=== PATIENT | male | born 1955 | race Caucasian/White ===

== ENCOUNTER → 2017-05-15 08:08 | Outpatient (CLI) | payer BC, SELFPAY ==
[2017-05-15 13:20] LABS: Basophils % 0.9 % (0.1-2.0); Eosinophils # 0.3 K/mm3 (0.0-0.4); Eosinophils % 7.5 % (0.1-12.0); Hematocrit 49.5 % (42.0-52.0); Hemoglobin 17.1 g/dL (14.1-18.0); Lymphocytes # 1.5 K/mm3 (0.7-4.5); Mean Corpuscular HGB Conc 34.6 g/dL (31.8-35.4); Mean Corpuscular Hemoglobin 31.7 pg (27.0-31.2); Mean Corpuscular Volume 91.6 fl (80-94); Mean Platelet Volume 8.2 fl (7.4-10.4); Monocytes # 0.3 K/mm3 (0.1-1.0); Monocytes % 6.3 % (1.7-9.3); Neutrophils # 2.1 K/mm3 (1.8-7.8); Neutrophils % 49.3 % (37.0-80.0); Platelet Count 254 K/mm3 (142-424); Red Cell Distribution Width 13.3 % (11.5-17.5); White Blood Count 4.3 K/mm3 (4.8-10.8)
[2017-05-15 13:50] LABS: Alanine Aminotransferase 37 U/L (12-78); Albumin Level 3.8 gm/dL (3.4-5.0); Albumin/Globulin Ratio 1.4 (1.1-1.8); Alkaline Phosphatase 69 U/L (46-116); Anion Gap 13.3 mEq/L (5-15); Aspartate Amino Transferase 27 U/L (15-37); Bilirubin,Total 0.8 mg/dL (0.2-1.0); Blood Urea Nitrogen 9 mg/dL (7-18); Calcium 9.5 mg/dL (8.5-10.1); Carbon Dioxide 25 mmol/L (21.0-32.0); Chloride 99 mmol/L (98-107); Chol/HDL Ratio 2.2 (1-3.5); Cholesterol 198 mg/dL (140-200); Creatinine,Serum 0.76 mg/dL (0.70-1.30); Estimated Glomerular Filt Rate 104 ml/min (>60); GFR (African American) 126 ML/MIN (>60); Globulin 2.8 gm/dl (1.3-3.2); Glucose 100 mg/dL (74-106); HDL Cholesterol 89 mg/dL (27-67); LDL Cholesterol 96 mg/dL (0-130); Potassium 4.3 mmoL/L (3.5-5.1); Prostate Specific Ag Screen 0.9 ng/mL (0.0-4.0); Sodium 133 mmol/L (136-145); Total Protein,Serum 6.6 gm/dL (6.4-8.2); Triglycerides 64 mg/dL (30-200); VLDL Cholesterol 13 mg/dL (0-40)
== END ==
PROVIDERS: PCP Internal Medicine Adolescent Medicine; Visit Provider Internal Medicine Adolescent Medicine
DX: Z00.00 Encounter for general adult medical examination without abnormal findings (principal); E78.5 Hyperlipidemia, unspecified; J45.21 Mild intermittent asthma with (acute) exacerbation
CPT/HCPCS: 36415; 80053; 80061; 85025; G0103

== ENCOUNTER → 2018-06-25 09:29 | Outpatient (CLI) | payer BC, SELFPAY ==
[2018-06-25 09:56] LABS: Eosinophils # 0.2 K/mm3 (0.0-0.4); Neutrophils # 1.5 K/mm3 (1.8-7.8); Red Cell Distribution Width 13.5 % (11.5-17.5)
[2018-06-25 10:11] LABS: Basophils % 0.9 % (0.1-2.0); Eosinophils % 6.2 % (0.1-12.0); Hematocrit 52.2 % (42.0-52.0); Lymphocytes # 1.4 K/mm3 (0.7-4.5); Lymphocytes % 40.7 % (10-50); Mean Corpuscular HGB Conc 35.9 g/dL (31.8-35.4); Mean Corpuscular Hemoglobin 32.3 pg (27.0-31.2); Monocytes # 0.3 K/mm3 (0.1-1.0); Monocytes % 8.6 % (1.7-9.3); Neutrophils % 43.6 % (37.0-80.0); Platelet Count 256 K/mm3 (142-424); Red Blood Count 5.81 M/mm3 (4.60-6.20); White Blood Count 3.4 K/mm3 (4.8-10.8)
[2018-06-25 10:16] LABS: Hemoglobin 18.8 g/dL (14.1-18.0)
[2018-06-25 11:22] LABS: Alanine Aminotransferase 33 U/L (12-78); Albumin Level 3.9 gm/dL (3.4-5.0); Albumin/Globulin Ratio 1.3 (1.1-1.8); Alkaline Phosphatase 77 U/L (46-116); Aspartate Amino Transferase 26 U/L (15-37); Bilirubin,Total 0.9 mg/dL (0.2-1.0); Blood Urea Nitrogen 6 mg/dL (7-18); Calcium 9.4 mg/dL (8.5-10.1); Carbon Dioxide 27 mmol/L (21.0-32.0); Chloride 100 mmol/L (98-107); Cholesterol 188 mg/dL (140-200); Creatinine,Serum 0.84 mg/dL (0.70-1.30); Estimated Glomerular Filt Rate 92 ml/min (>60); Free Thyroxine Index 2.1 ug/dL (5.93-13.13); GFR (African American) 112 ML/MIN (>60); Globulin 3.1 gm/dl (1.3-3.2); Glucose 92 mg/dL (74-106); HDL Cholesterol 92 mg/dL (27-67); LDL Cholesterol 86 mg/dL (0-130); Sodium 136 mmol/L (136-145); T4 (Thyroxine) 6.6 ug/dl (4.7-13.3); Thyroid Stimulating Hormone 0.81 uIU/ml (0.358-3.740); Triglycerides 50 mg/dL (30-200); Triiodothryronine (T3) Uptake 32 % (31-39); VLDL Cholesterol 10 mg/dL (0-40)
== END ==
PROVIDERS: Visit Provider Internal Medicine Adolescent Medicine
DX: J45.21 Mild intermittent asthma with (acute) exacerbation (principal); E78.5 Hyperlipidemia, unspecified; R63.4 Abnormal weight loss
CPT/HCPCS: 36415; 80053; 80061; 84436; 84443; 84479; 85025

== ENCOUNTER → 2020-05-19 09:38 | Outpatient (CLI) | payer MEDICARE, SELFPAY ==
[2020-05-19 10:35] LABS: Chloride 98 mmol/L (98-107); Potassium 3.9 mmoL/L (3.5-5.1); Sodium 133 mmol/L (136-145)
[2020-05-19 10:38] LABS: Alanine Aminotransferase 36 U/L (12-78); Albumin Level 4.4 g/dl (3.5-5.0); Albumin/Globulin Ratio 1.9 (1.1-1.8); Alkaline Phosphatase 68 U/L (38-126); Anion Gap 11.9 mEq/L (5-15); Aspartate Amino Transferase 63 U/L (17-59); Bilirubin,Total 1.2 mg/dl (0.2-1.3); Blood Urea Nitrogen 4 mg/dl (9-20); Carbon Dioxide 27 mmol/L (22.0-30.0); Cholesterol 208 mg/dl (140-200); Estimated Glomerular Filt Rate 113 ml/min (>60); GFR (African American) 137 ML/MIN (>60); Globulin 2.3 g/dL (1.3-3.2); Total Protein,Serum 6.7 g/dl (6.3-8.2); Triglycerides 47 mg/dl (30-150); VLDL Cholesterol 9 mg/dL (0-40)
[2020-05-19 10:39] LABS: Calcium 9.9 mg/dl (8.4-10.2); Glucose 99 mg/dl (74-100)
[2020-05-19 10:40] LABS: HDL Cholesterol > 110 mg/dl (40-60)
[2020-05-19 10:49] LABS: Direct LDL Cholesterol 49.09 mg/dL (100-129)
== END ==
PROVIDERS: Visit Provider Nurse Practitioner Family
DX: I10 Essential (primary) hypertension (principal); E78.5 Hyperlipidemia, unspecified
CPT/HCPCS: 36415; 80053; 80061

== ENCOUNTER → 2020-11-29 07:14 | Outpatient (CLI) | payer MEDICARE, SELFPAY ==
--- NOTE | 2020-11-29 07:17 | CT_ITS ---
PROCEDURE: CT LUNG SCREENING CLINICAL INDICATION: NICOTINE DEPENDENCE COMPARISON: CT LDCTLCAS LDCT FOR LUNG CA SCREEN from 09/22/2016 TECHNIQUE: The exam was performed on a GE Light Speed [address] scanner using 2.90 mGy CTDI. A low dose helical CT CHEST was performed on a multi-detector scanner. All CT scans at the facility use one or more dose reduction, viz: automated exposure control, ma/kV adjustment per patient size (including targeted exams where dose is matched to indication, i.e. head), or iterative reconstruction technique. The LDCT was performed in a facility that meets the criteria for the screening program. Data regarding this exam was submitted to ACR which is an approved registry. The order for this exam indicates that it came as a result of a lung cancer screening counseling shard decision-making visit that included all the elements required of such a visit including smoking cessation. The radiologist interpreting this exam meets the [facility] criteria for the LDCT lung cancer screening program. The exam is reported using the Lung-RADS classification scale and reported to the ACR registry. NOTE: This study was performed for the specific purposes of lung cancer screening and is not an alternative to diagnostic chest CT. RADIATION DOSE: CTDI vol(CT dose Index-volume) = 2.90mG DLP (Dose Length Product) = 113.8 mGcm FINDINGS: COPD with centrilobular emphysema. Scarring in the right lower lobe posteriorly not significantly changed. Mild diffuse bronchial thickening. Scarring in the left upper lobe centrally and anteriorly well as scarring in the lingula. 5 mm noncalcified nodule left CP angle posteriorly not readily apparent on the previous exam. OTHER FINDINGS: No other pertinent findings evident. IMPRESSION: Lung-RADS Category 3 Probably Benign regarding left lower lobe nodule. Follow-up: [address] Chest without contrast. Dictated by: Ezequiel Geronimo MD 12/06/2020 09:54 Ezequiel Geronimo MD in [place] 12/06/2020 09:54
--- NOTE | 2020-11-29 07:18 | US_ITS ---
PROCEDURE: US AORTA CLINICAL INDICATION: NICOTINE DEPENDENCE COMPARISON: CT LDCTLCAS LDCT FOR LUNG CA SCREEN from 09/22/2016 FINDINGS: Is mild dilatation the abdominal aorta at the level of the umbilicus at 2.4 x 1.9 cm. Plaque within the abdominal aorta posteriorly at this level. This may also be artifactual in nature. Proximal common iliacs are unremarkable. IMPRESSION: Suspected mild dilatation of the mid abdominal aorta 2.4 cm with possible plaque posteriorly. CT may confirm if clinically desired. Dictated by: Ezequiel Geronimo MD 11/30/2020 08:33 Ezequiel Geronimo MD in [place] 11/30/2020 08:33
== END ==
PROVIDERS: PCP Internal Medicine Adolescent Medicine; Visit Provider Internal Medicine Adolescent Medicine
DX: Z87.891 Personal history of nicotine dependence (principal); Z12.2 Encounter for screening for malignant neoplasm of respiratory organs; Z13.6 Encounter for screening for cardiovascular disorders
CPT/HCPCS: 71271; 76770

== ENCOUNTER → 2022-05-17 14:57 | Outpatient (POV) | payer MEDICARE, SELFPAY ==
--- NOTE | 2022-05-17 15:23 | EXP.PAIN.OV ---
HPI Data of Consult Patient: new to practice Consult date: 05/17/22 Requesting Physician: Trista Ramos APRN Primary Care Provider: Yordan Garcia MD Consult Narrative Reason for consult: Low back pain History of present illness: Mr. Rosenberg is a 67 year old male who presents today as a new patient. He is a referral from Dr. Nieves's office. Today he rates his pain a 5 out of 10. Patient states his pain is all in his low back that runs from the midline over to his left side. Patient denies any radiating symptoms into his legs. He states this has been going on for years however the last 4 months is progressively worsened. He does describe this as a aching sensation with occasional sharp pains that is worse with increased activity. He does state it is continuous. Patient did have a MRI and CT done at [facility]. Patient states he has had chiropractor therapy in the past however this worsened his symptoms. He did start physical therapy yesterday with his first session. Patient does take [id number] ibuprofen. He has recently been prescribed Wells 5 mg 4 times a day from an outside provider. He states these were only two 3-day supplies of medication for having teeth pulled however he never took the first 1. He does use a heating pad as needed and has tried Salonpas however he states after the first time of using this it did not provide additional relief and he has not used it since. His Daniel is [phone]. Its been reviewed and appropriate. CC: Trista Ramos APRN [facility] Disclaimer: The information contained in this section may have been updated after the patient was seen, as this information can be updated by other users. Medical History (Updated 05/17/22 @ 15:49 by Bibiana Dyer RN) COPD (chronic obstructive pulmonary disease) GERD (gastroesophageal reflux disease) HLD (hyperlipidemia) HTN (hypertension) Migraines Social History Smoking Status: Current every day smoker tobacco type: cigars alcohol intake: current substance use type: denies use current occupational status: retired Travel in the last 8 weeks: None caffeine: Yes Review of Systems Review of Systems Review of systems:: pertinent systems reviewed and negative unless documented below Review of systems (narrative): Review of Systems: General: No recent weight changes, no fever, no sleep disturbances Respiratory: No cough, no shortness of air, no recurring pulmonary infections Cardiovascular/peripheral vascular: No chest pain, no palpitations, no edema, no shortness of breath Gastrointestinal: No new onset incontinence, normal bowel movements reported Genitourinary: No new onset incontinence Musculoskeletal: Low back pain Psychiatric: [Normal mood/affect] Neurological: [Denies weakness in extremities], [denies balance issues] Meds Home Medications and Allergies Home Medications Medication Instructions Recorded Confirmed Type fluticasone furoate 100 1 inh IH DAILY Asthma 11/06/18 11/15/18 History mcg-vilanterol 25 mcg/dose inhalation powder hydrochlorothiazide 25 mg tablet 25 mg PO DAILY blood pressure 11/06/18 11/15/18 History omeprazole 40 mg capsule,delayed 40 mg PO DAILY GERD 11/06/18 11/15/18 History release ranitidine HCl 300 mg capsule 300 mg PO DAILY GERD 11/06/18 11/15/18 History rosuvastatin 10 mg tablet 10 mg PO DAILY Cholesterol 05/17/22 05/17/22 History New Prescriptions to Start Prescriptions: Allergies Allergy/AdvReac Type Severity Reaction Status Date / Time Penicillins Allergy Verified 11/06/18 13:44 Objective Narrative: Physical Exam: General: Alert and oriented x3, no acute distress, pleasant and cooperative Lungs: Respirations even and unlabored, symmetrical chest expansion Eyes: PERRL Musculoskeletal: Flexion and extension of lumbar [spine] somewhat guarded secondary to pain, [antalgic gait noted] point tenderness noted at lower lumbar spine Neurologi
[2022-05-17 15:37] VITALS: BP 132/73; PULSE 73; RESP 18; O2SAT 98; BMI 24.0
== END ==
PROVIDERS: PCP Internal Medicine Adolescent Medicine; Visit Provider Nurse Practitioner Family
DX: M54.50 Low back pain, unspecified (principal)
CPT/HCPCS: 99202; G0463

== ENCOUNTER 2022-05-30 10:25 | Day surgery (SDC) | payer MEDICARE, SELFPAY ==
[2022-05-30 10:37] VITALS: BP 153/93; PULSE 76; RESP 18; TEMP 36.5; O2SAT 98; BMI 24.0
[2022-05-30 10:40] VITALS: BP 152/74; PULSE 72; RESP 18; O2SAT 98
[2022-05-30 10:41] VITALS: BP 152/74; PULSE 72; RESP 18; O2SAT 98
[2022-05-30 10:45] VITALS: BP 154/81; PULSE 72; RESP 18; O2SAT 98
--- NOTE | 2022-05-30 10:47 | EXP.PAIN.PRO ---
Procedure Date: 05/30/22 Time: 10:40 Anesthesiologist:: William Mcduffie CRNA Complications:: None Pre-procedure Diagnosis:: Degenerative disc disease lumbar spine multilevels. Lumbar radiculopathy Post-procedure Diagnosis:: Same. Indications for Procedure:: Patient is a very pleasant 67-year-old male that comes our clinic today for L2-3 lumbar epidural steroid injection. Patient has low back pain he describes as constant, dull, aching. Rates pain 6/10 today. Patient also complains of some radicular symptoms into the hips at times Procedure Details:: Procedure: Lumbar epidural steroid injection under fluoroscopy Informed consent was obtained and the risks and benefits of the procedure were explained to the patient. The patient was taken to the procedure room and noninvasive monitors placed, including noninvasive blood pressure cuff and pulse oximeter. The back was viewed using C-arm Fluoroscopy and prepped using Chloraprep as a cleansing solution and the L2-3 interspace was palpated. Skin and subcutaneous tissues were anesthetized using lidocaine 1.5% and a 25-gauge needle. After this, an 18-gauge Touhy epidural needle was placed into the L2-3 interspace and advanced using fluoroscopic guidance and loss of resistance to air until the epidural space was encountered. After confirmation of needle placement in the epidural space, with dye, a solution containing normal saline, 3 mL and Depo-Medrol 80 mg were incrementally injected into the lumbar epidural space. The patient tolerated the procedure well with no complications. The patient was observed in the Pain Clinic and then discharged home neurologically intact. Plan and Disposition:: Patient was discharged without incident.
== END 2022-05-30 10:45 | disposition home or self-care (01) ==
PROVIDERS: PCP Internal Medicine Adolescent Medicine; Visit Provider Nurse Anesthetist, Certified Registered
DX: M51.16 Intervertebral disc disorders with radiculopathy, lumbar region (principal)
CPT/HCPCS: 62323; J1040

== ENCOUNTER → 2022-06-14 10:58 | Outpatient (POV) | payer MEDICARE, SELFPAY ==
--- NOTE | 2022-06-14 11:43 | EXP.PAIN.SOA ---
[facility] Pain Management SOAP Note Subjective:: Patient is a pleasant 67-year-old male who presents today for follow-up of lumbar epidural steroid injection of L2-L3. We are currently treating the patient for degenerative disc disease of lumbar spine with lumbar radiculopathy symptoms, lumbar facet arthropathy, neuroforaminal narrowing. Today he rates his pain a 6 out of 10. Patient states he had at least 50% improvement following this injection and lasting approximately 2 weeks. Patient does state that he feels like he still getting some relief however it is starting to go back towards his baseline. He describes his pain as a dull achy sensation that is worse with increased activity. He states frequently mornings are worse and as the day goes on his pain does ease up some. He does state this pain interferes with his ability to perform activities of daily living such as cooking and cleaning or even simple ambulation. He is interested in repeating this injection before he goes on vacation in July to . Patient is currently in physical therapy and is not on any scheduled medications. He does take ibuprofen as needed with minimal relief along with a heating pad for temporary relief. His Daniel is [phone]. Its been reviewed and appropriate. Review of Systems: General: No recent weight changes, no fever, no sleep disturbances Respiratory: No cough, no shortness of air, no recurring pulmonary infections Cardiovascular/peripheral vascular: No chest pain, no palpitations, no edema, no shortness of breath Gastrointestinal: No new onset incontinence, normal bowel movements reported Genitourinary: No new onset incontinence Musculoskeletal: Low back pain Psychiatric: [Normal mood/affect] Neurological: [Denies weakness in extremities], [denies balance issues] Objective:: Physical Exam: General: Alert and oriented x3, no acute distress, pleasant and cooperative Lungs: Respirations even and unlabored, symmetrical chest expansion Eyes: PERRL Musculoskeletal: Flexion and extension of lumbar [spine] somewhat guarded secondary to pain, [antalgic gait noted] Neurological: Speech clear, no gross sensory deficit Assessment:: Degenerative disc disease of lumbar spine with lumbar radiculopathy symptoms, lumbar facet arthropathy, neuroforaminal narrowing Plan:: Patient did have at least 50% improvement following his initial lumbar epidural however he is starting to have more pain in his low back. Patient had limited range of motion of his lumbar spine during today's visit. I have discussed with the patient that he may benefit from repeating his lumbar epidural. Risk and benefits were discussed with the patient and he would like to proceed forward with this plan of care. Patient is not on any blood thinners. I will also order him methocarbamol 500 mg at bedtime and provide a 2-week supply of this medication. Patient has tried and failed conservative therapy such as oral medications, heat and ice, topicals, at home exercise and stretching for longer than 6 weeks and physical therapy. We will schedule the patient for a LESI L2-L3. Patient has been instructed to contact the clinic with any concerns before the next appointment. Dr. Smith has reviewed this note and agrees with this plan of care. This note was dictated using voice recognition software and make contain errors or omissions. [facility] Disclaimer: The information contained in this section may have been updated after the patient was seen, as this information can be updated by other users. Medical History COPD (chronic obstructive pulmonary disease) GERD (gastroesophageal reflux disease) HLD (hyperlipidemia) HTN (hypertension) Migraines Family History (Updated 05/30/22 @ 10:38 by Silke Pablo RN) Other No significant family history Social History Smoking Status: Current ever
[2022-06-14 12:19] VITALS: BP 114/73; PULSE 76; RESP 18; O2SAT 98; BMI 25.2
== END | disposition home or self-care (01) ==
PROVIDERS: PCP Internal Medicine Adolescent Medicine; Visit Provider Nurse Practitioner Family
DX: M51.16 Intervertebral disc disorders with radiculopathy, lumbar region (principal); M47.26 Other spondylosis with radiculopathy, lumbar region
CPT/HCPCS: 99212; G0463

== ENCOUNTER 2022-07-11 10:15 | Day surgery (SDC) | payer MEDICARE, SELFPAY ==
[2022-07-11 10:34] VITALS: BP 135/72; PULSE 74; RESP 18; TEMP 36.4; O2SAT 98; BMI 24.3
--- NOTE | 2022-07-11 11:04 | EXP.PAIN.PRO ---
Procedure Date: 07/11/22 Time: 10:50 Anesthesiologist:: William Mcduffie CRNA Complications:: None Pre-procedure Diagnosis:: Degenerative disc disease lumbar spine multilevels. Lumbar radiculopathy. Lumbar spondylosis. Post-procedure Diagnosis:: Same. Indications for Procedure:: Patient is a pleasant 67-year-old male that comes our clinic today for repeat L2-3 lumbar epidural steroid injection. Patient reports moderate improvement in terms of his overall low back pain with his previous injection at the same level. Patient reports some bilateral hip pain. However, his strongest complaint is low lumbar back pain. Procedure Details:: Procedure: Lumbar epidural steroid injection under fluoroscopy Informed consent was obtained and the risks and benefits of the procedure were explained to the patient. The patient was taken to the procedure room and noninvasive monitors placed, including noninvasive blood pressure cuff and pulse oximeter. The back was viewed using C-arm Fluoroscopy and prepped using Chloraprep as a cleansing solution and the L2-3 interspace was palpated. Skin and subcutaneous tissues were anesthetized using lidocaine 1.5% and a 25-gauge needle. After this, an 18-gauge Touhy epidural needle was placed into the L2-3 interspace and advanced using fluoroscopic guidance and loss of resistance to air until the epidural space was encountered. After confirmation of needle placement in the epidural space, with dye, a solution containing normal saline, 3 mL and Depo-Medrol 80 mg were incrementally injected into the lumbar epidural space. The patient tolerated the procedure well with no complications. The patient was observed in the Pain Clinic and then discharged home neurologically intact. Plan and Disposition:: Patient was discharged without incident.
[2022-07-11 11:05] VITALS: BP 132/78; PULSE 67; RESP 18; O2SAT 97
[2022-07-11 11:06] VITALS: BP 132/78; PULSE 67; RESP 18; O2SAT 97
[2022-07-11 11:08] VITALS: BP 136/71; PULSE 67; RESP 18; O2SAT 98
== END 2022-07-11 11:08 | disposition home or self-care (01) ==
PROVIDERS: PCP Internal Medicine Adolescent Medicine; Visit Provider Nurse Anesthetist, Certified Registered
DX: M51.16 Intervertebral disc disorders with radiculopathy, lumbar region (principal); M47.26 Other spondylosis with radiculopathy, lumbar region
CPT/HCPCS: 62323; J1040

== ENCOUNTER → 2022-07-31 13:27 | Outpatient (POV) | payer MEDICARE, SELFPAY ==
[2022-07-31 13:33] VITALS: BP 136/79; PULSE 76; RESP 18; O2SAT 98; BMI 24.3
--- NOTE | 2022-07-31 14:11 | EXP.PAIN.SOA ---
[facility] Pain Management SOAP Note Subjective:: Patient is a pleasant 67-year-old male who presents today for follow-up of lumbar epidural steroid injection L2-L3 on 07/11/2022. We are currently treating the patient for degenerative disc disease of lumbar spine with lumbar radiculopathy symptoms, lumbar facet arthropathy, neuroforaminal narrowing. Today he rates his pain a 2 out of 10. He states that he has had at least 50% improvement following this injection and feels like it is still continue to provide some relief. He states he was able to go on his vacation trip to [place] and that they typically walked anywhere from 8-1/2 miles to 12 miles per day. He states he was able to move easier with decreased pain symptoms. He denies any new injuries. He does state that he continues to have some pain in his low back however it is much more tolerable than what it was prior. Patient is not currently on any scheduled medications and just takes ibuprofen as needed along with a heating pad. At our last visit we did prescribe a muscle relaxer of methocarbamol 500 mg at bedtime however the patient states he has not yet used this medication. His Daniel is [phone]. Has been reviewed and appropriate. Review of Systems: General: No recent weight changes, no fever, no sleep disturbances Respiratory: No cough, no shortness of air, no recurring pulmonary infections Cardiovascular/peripheral vascular: No chest pain, no palpitations, no edema, no shortness of breath Gastrointestinal: No new onset incontinence, normal bowel movements reported Genitourinary: No new onset incontinence Musculoskeletal: Low back pain Psychiatric: [Normal mood/affect] Neurological: [Denies weakness in extremities], [denies balance issues] Objective:: Physical Exam: General: Alert and oriented x3, no acute distress, pleasant and cooperative Lungs: Respirations even and unlabored, symmetrical chest expansion Eyes: PERRL Musculoskeletal: Flexion and extension of lumbar [spine] somewhat guarded secondary to pain, [antalgic gait noted] Neurological: Speech clear, no gross sensory deficit Assessment:: Degenerative disc disease of lumbar spine with lumbar radiculopathy symptoms, lumbar facet arthropathy, neuroforaminal narrowing Plan:: Patient has had significant improvement following his lumbar epidural steroid injection and does not require any additional injective therapy at this time. Patient will return to clinic in 1 month for reevaluation of symptoms and plan of care. Patient has been instructed to contact the clinic with any concerns before the next appointment. Dr. Smith has reviewed this note and agrees with this plan of care. This note was dictated using voice recognition software and make contain errors or omissions. [facility] Disclaimer: The information contained in this section may have been updated after the patient was seen, as this information can be updated by other users. Medical History COPD (chronic obstructive pulmonary disease) GERD (gastroesophageal reflux disease) HLD (hyperlipidemia) HTN (hypertension) Migraines Family History Other No significant family history Social History Smoking Status: Current every day smoker tobacco type: cigars alcohol intake: current substance use type: denies use current occupational status: retired Travel in the last 8 weeks: None caffeine: Yes
== END ==
PROVIDERS: PCP Internal Medicine Adolescent Medicine; Visit Provider Nurse Practitioner Family
DX: M51.16 Intervertebral disc disorders with radiculopathy, lumbar region (principal); M47.26 Other spondylosis with radiculopathy, lumbar region
CPT/HCPCS: 99212; G0463

== ENCOUNTER 2023-08-15 09:31 | Outpatient (POV) | payer MEDICARE, SELFPAY ==
--- NOTE | 2023-08-15 09:55 | EXP.PAIN.SOA ---
[facility] Disclaimer: The information contained in this section may have been updated after the patient was seen, as this information can be updated by other users. Medical History (Updated 08/15/23 @ 09:58 by Trista Ramso APRN) Migraines COPD (chronic obstructive pulmonary disease) GERD (gastroesophageal reflux disease) HLD (hyperlipidemia) HTN (hypertension) Family History Other No significant family history Social History Smoking Status: Current every day smoker tobacco type: cigars alcohol intake: current substance use type: denies use current occupational status: retired Travel in the last 8 weeks: None caffeine: Yes PM Subjective & Objective Subjective Subjective:: Patient is a pleasant 68-year-old male who presents today for a follow-up. Today he rates his pain a 4 out of 10 however states that his pain will go to an 8 or a 9 out of 10 when he is up doing more activity. Patient states that the pain can be debilitating. He states it is all along his low back and hips and does state that it is more prominent on the left side. He describes it as a constant aching, throbbing sensation and states he is not having any symptoms into his legs. Patient does state certain activities do seem to aggravate it such as bending, twisting or lifting. Patient has continued to try [id number] medications along with heat and ice and topicals with minimal relief. Patient has been using ibuprofen and heating pad and was prescribed the muscle relaxer of methocarbamol 500 mg at night. Patient is interested in we may go to provide as the pain is interfering with his ability perform activities of daily living such as cooking and cleaning. His Daniel has been reviewed and is appropriate. Review of Systems: General: No recent weight changes, no fever, no sleep disturbances Respiratory: No cough, no shortness of air, no recurring pulmonary infections Cardiovascular/peripheral vascular: No chest pain, no palpitations, no edema, no shortness of breath Gastrointestinal: No new onset incontinence, normal bowel movements reported Genitourinary: No new onset incontinence Musculoskeletal: Low back pain, hip pain Psychiatric: [Normal mood/affect] Neurological: [Denies weakness in extremities], [denies balance issues] Pain at rest (0-10 scale): 4 Objective Objective:: Physical Exam: General: Alert and oriented x3, no acute distress, pleasant and cooperative Lungs: Respirations even and unlabored, symmetrical chest expansion Eyes: PERRL Musculoskeletal: Flexion and extension of lumbar [spine] somewhat guarded secondary to pain, [antalgic gait noted] positive Kemps test Neurological: Speech clear, no gross sensory deficit Has patient had previous pain injection?: No Conservative treatment options previously tried: NSAIDS Length of treatment: >6 weeks, Home exercise plan Length of treatment: >6 weeks and Prescription medications Length of treatment: >6 weeks Meds Home Medications and Allergies Home Medications Medication Instructions Recorded Confirmed Type fluticasone furoate 100 1 inh IH DAILY Asthma 11/06/18 07/31/22 History mcg-vilanterol 25 mcg/dose inhalation powder hydrochlorothiazide 25 mg tablet 25 mg PO DAILY blood pressure 11/06/18 07/31/22 History omeprazole 40 mg capsule,delayed 40 mg PO DAILY GERD 11/06/18 07/31/22 History release ranitidine HCl 300 mg capsule 300 mg PO DAILY GERD 11/06/18 07/31/22 History rosuvastatin 10 mg tablet 10 mg PO DAILY Cholesterol 05/17/22 07/31/22 History methocarbamol 500 mg tablet 500 mg PO HS . 07/11/22 07/31/22 History New Prescriptions to Start Prescriptions: Allergies Allergy/AdvReac Type Severity Reaction Status Date / Time Penicillins Allergy Verified 07/11/22 10:38 Assessment and Plan *Assessment and plan (1) Low back pain: Status: Acute Qualifiers: Chronicity: chronic Back pain laterality: bilateral Sciatica presence: without sciatica Qualified Code(s): M54.50 - Low back pain, unspecified; G89.29 - Other chronic pain Category: Medical Code(s): M54.50 - Low back pain, unspecified (2) Hip pain: Status: Acute Qualifiers: Laterality: left Qualified Code(s): M25.552 - Pain in left hip Category: Medical Code(s): M25.559 - Pain in unspecified hip (3) Lumbar facet arthropathy: Status: Acute Category: Medical Code(s): M47.816 - Spondylosis without myelopathy or radiculopathy, lumbar region Plan Patient is experiencing worsening pain in his low back with limited range of motion of his lumbar spine and a positive Kemps test. Patient did have a positive bilateral Kemps test. I have discussed with patient due to his assessment that I would recommend we try a lumbar medial branch block that he may be a beneficial candidate of this injection. Risk and benefits were discussed with patient and he would like to proceed forward with this plan of care. Patient was counseled if he gets significant relief we will plan on repeating this injection with the plan to do an ablation at a later date. Patient has tried and failed conservative therapy including oral medications, heat and ice, topicals, continued at home stretching exercise for longer than 6 weeks. Will schedule the patient for a lumbar medial branch block bilaterally L4-L5 and L5-S1 under fluoroscopy. Patient has been instructed to contact the clinic with any concerns before the next appointment. Dr. Smith has reviewed this note and agrees with this plan of care. This note was dictated using voice recognition software and make contain errors or omissions.
[2023-08-15 10:01] VITALS: BP 130/79; PULSE 85; RESP 18; O2SAT 96; BMI 23.9
== END 2023-08-15 23:59 | disposition home or self-care (01) ==
LOC: SC.PAIN 09:33
PROVIDERS: PCP Internal Medicine Adolescent Medicine; Visit Provider Nurse Practitioner Family
DX: M54.50 Low back pain, unspecified (principal); G89.29 Other chronic pain; M25.552 Pain in left hip; M47.816 Spondylosis without myelopathy or radiculopathy, lumbar region
CPT/HCPCS: 99212; G0463

== ENCOUNTER 2023-09-04 09:28 | Day surgery (SDC) | payer MEDICARE, SELFPAY ==
[2023-09-04 09:41] VITALS: BP 139/75; PULSE 83; RESP 18; TEMP 36.4; O2SAT 96; BMI 23.1
[2023-09-04] MEDS: BUPIVACAINE 0.25% 10ML INJ 25 MG IJ (09:59)
[2023-09-04] MEDS: methylPREDNISolone ACETATE 80MG/ML VIAL 80 MG (09:59)
[2023-09-04 10:00] VITALS: BP 139/79; PULSE 74; RESP 18; O2SAT 97
[2023-09-04] MEDS: LIDOCAINE 1% 5ML PF VIAL 5 ML (10:00)
[2023-09-04 10:01] VITALS: BP 139/79; PULSE 80; RESP 18; O2SAT 97
--- NOTE | 2023-09-04 10:09 | P.PCN_ITS ---
Procedure Date: 09/04/23 Time: 09:45 Anesthesiologist:: William Mcduffie CRNA Complications:: None Pre-procedure Diagnosis:: Degenerative disc lumbar spine multilevels. Lumbar radiculopathy. Lumbar spondylosis. Multilevel lumbar facet arthropathy. Post-procedure Diagnosis:: Same. Indications for Procedure:: Patient is a pleasant 68-year-old male comes to our clinic for round 2 of the bilateral lumbar medial branch blocks/facet injections at the L4-5 and L5-S1 level. Patient describes low back pain as constant, dull, aching. He reports pain intensifies with standing and/or sitting for any length of time. He rates his pain 7/10. Procedure Details:: Informed consent was obtained and the risk and benefits of the procedure was explained to the patient. Patient was taken to the procedure room where noninvasive monitors were placed, including noninvasive blood pressure cuff as well as pulse oximeter. The area over the lumbar spine was cleansed using chlorhexidine as a cleansing solution. I anesthetized the skin and subcutaneous tissues with 1% Lidocaine. I placed 22-gauge spinal needles into the facet joint/ medial branches of L4-L5, and L5-S1] bilaterally. Needle placement was confirmed with fluoroscopy. After confirmation of needle placement, each site was injected with 1 mL of 1% lidocaine and 0.25 % Marcaine and 10 mg of Depo- Medrol. A total of 80 mg of depo medrol was used for bilateral medial branch blocks of L4-L5, and L5-S1] bilaterally. Patient tolerated the procedure without difficulty. There were no complications. Plan and Disposition:: Patient was discharged without incident.
[2023-09-04 10:11] VITALS: BP 150/82; PULSE 70; RESP 18; O2SAT 96
== END 2023-09-04 10:12 | disposition home or self-care (01) ==
LOC: SC.PAINP 09:30
PROVIDERS: PCP Internal Medicine Adolescent Medicine; Visit Provider Nurse Anesthetist, Certified Registered
DX: M47.816 Spondylosis without myelopathy or radiculopathy, lumbar region (principal)
CPT/HCPCS: 64493; 64494; J1010

== ENCOUNTER 2023-09-19 14:24 | Outpatient (POV) | payer MEDICARE, SELFPAY ==
[2023-09-19 14:37] VITALS: BP 126/70; PULSE 84; RESP 18; O2SAT 94; BMI 23.1
--- NOTE | 2023-09-19 15:11 | EXP.PAIN.SOA ---
[facility] Disclaimer: The information contained in this section may have been updated after the patient was seen, as this information can be updated by other users. Medical History Migraines COPD (chronic obstructive pulmonary disease) GERD (gastroesophageal reflux disease) HLD (hyperlipidemia) HTN (hypertension) Family History Other No significant family history Social History Smoking Status: Current every day smoker tobacco type: cigars alcohol intake: current substance use type: denies use current occupational status: retired Travel in the last 8 weeks: None caffeine: Yes PM Subjective & Objective Subjective Subjective:: Patient is a pleasant 68-year-old male who presents today for follow-up of his second medial branch block bilaterally at the L4-L5 and L5-S1 on 09/04/2023. Today he rates his pain a 5 out of 10. Patient denies any new trauma or injury. He does state that he had approximately 75 to 80% relief from this injection initially. He states that it did take the severity and stabbing sensation away from his back pain. He does state however that it is starting to go back to his baseline. He denies any radiating symptoms into his legs. Patient does state that the pain interferes with his ability to perform activities of daily living such as cooking and cleaning. Patient has tried and failed conservative therapy. His Daniel has been reviewed and is appropriate. Review of Systems: General: No recent weight changes, no fever, no sleep disturbances Respiratory: No cough, no shortness of air, no recurring pulmonary infections Cardiovascular/peripheral vascular: No chest pain, no palpitations, no edema, no shortness of breath Gastrointestinal: No new onset incontinence, normal bowel movements reported Genitourinary: No new onset incontinence Musculoskeletal: Low back pain Psychiatric: [Normal mood/affect] Neurological: [Denies weakness in extremities], [denies balance issues] Pain at rest (0-10 scale): 5 Objective Objective:: Physical Exam: General: Alert and oriented x3, no acute distress, pleasant and cooperative Lungs: Respirations even and unlabored, symmetrical chest expansion Eyes: PERRL Musculoskeletal: Flexion and extension of lumbar [spine] somewhat guarded secondary to pain, [antalgic gait noted] positive Kemps test Neurological: Speech clear, no gross sensory deficit Has patient had previous pain injection?: Yes Percent improvement in pain since last injection: 75 to 80% Conservative treatment options previously tried: Home exercise plan Length of treatment: Longer than 6 weeks and Prescription medications Length of treatment: Longer than 6 weeks Meds Home Medications and Allergies Home Medications ?Medication ?Instructions ?Recorded ?Confirmed ?Type fluticasone furoate 100 1 inh IH DAILY Asthma 11/06/18 09/19/23 History mcg-vilanterol 25 mcg/dose inhalation powder hydrochlorothiazide 25 mg tablet 25 mg PO DAILY blood pressure 11/06/18 09/19/23 History omeprazole 40 mg capsule,delayed 40 mg PO DAILY GERD 11/06/18 09/19/23 History release ranitidine HCl 300 mg capsule 300 mg PO DAILY GERD 11/06/18 09/19/23 History rosuvastatin 10 mg tablet 10 mg PO DAILY Cholesterol 05/17/22 09/19/23 History methocarbamol 500 mg tablet 500 mg PO HS . 07/11/22 09/19/23 History New Prescriptions to Start Prescriptions: Allergies Allergy/AdvReac Type Severity Reaction Status Date / Time Penicillins Allergy Verified 07/11/22 10:38 Assessment and Plan *Assessment and plan (1) Lumbar facet arthropathy: Status: Acute Category: Medical Code(s): M47.816 - Spondylosis without myelopathy or radiculopathy, lumbar region (2) Low back pain: Status: Acute Qualifiers: Chronicity: chronic Back pain laterality: bilateral Sciatica presence: without sciatica Qualified Code(s): M54.50 - Low back pain, unspecified; G89.29 - Other chronic pain Category: Medical Code(s): M54.50 - Low back pain, unspecified Plan Patient has had 2 successful lumbar medial branch blocks that his last injection did provide 75 to 80% relief however is starting to go back to his baseline at today's visit. Patient was reviewed over the risk and benefits of the lumbar RFA and he would like to proceed forward with this plan of care. Patient is not on any blood thinners. Patient has tried and failed conservative therapy including oral medications, heat and ice, topicals, continued at home stretching and exercise for longer than 6 weeks. We will submit to insurance for the lumbar radiofrequency ablation L4-L5 and L5-S1 bilaterally under fluoroscopy. Patient was also counseled in future if he continues to have chronic pain that may be beneficial to look into possible pain pump trial. We will follow-up with this at future visits. Patient has been instructed to contact the clinic with any concerns before the next appointment. Dr. Smith has reviewed this note and agrees with this plan of care. This note was dictated using voice recognition software and make contain errors or omissions. All injections are used with Lidocaine or Bupivacaine and Depo Medrol.
== END 2023-09-19 23:59 | disposition home or self-care (01) ==
LOC: SC.PAIN 14:25
PROVIDERS: PCP Internal Medicine Adolescent Medicine; Visit Provider Nurse Practitioner Family
DX: M47.816 Spondylosis without myelopathy or radiculopathy, lumbar region (principal); M54.50 Low back pain, unspecified; G89.29 Other chronic pain; F17.210 Nicotine dependence, cigarettes, uncomplicated; Z73.89 Other problems related to life management difficulty
CPT/HCPCS: 99212; G0463

== ENCOUNTER 2023-10-02 13:28 | Day surgery (SDC) | payer MEDICARE, SELFPAY ==
[2023-10-02 13:43] VITALS: BP 130/67; PULSE 74; RESP 16; TEMP 36.6; O2SAT 99; BMI 23.1
[2023-10-02 14:26] VITALS: BP 152/69; PULSE 75; RESP 16; O2SAT 99
--- NOTE | 2023-10-02 14:35 | P.PCN_ITS ---
Procedure Date: 10/02/23 Time: 14:15 Anesthesiologist:: William Mcduffie CRNA Complications:: None Pre-procedure Diagnosis:: Degenerative disc lumbar spine multilevels. Lumbar radiculopathy. Lumbar facet arthropathy. Lumbar spondylosis. Post-procedure Diagnosis:: Same. Indications for Procedure:: Patient is a pleasant 68-year-old male who comes to clinic today for a lumbar L4-5, L5-S1 bilateral radiofrequency ablation. Patient had successful 2 rounds of lumbar medial branch block at the same level. He reports low back pain with standing and or sitting for any length of time. He rates his pain 8/10. Procedure Details:: Procedure Details: Lumbar RFA Informed consent was obtained and the risk and benefits of the procedure was explained to the patient. Patient was placed prone on the procedure table. The patient was prepped and draped in sterile fashion. C-arm fluoroscopy was used to view the lumbar spine. The skin and subcutaneous tissues were anesthetized using lidocaine. I placed 20-gauge RF needles into the facet joints of L3-L4, L4-L5 and L5-S1 on the left side. We underwent sensory stimulation. There is good sensory stimulation at 0.8 V. We underwent motor stimulation. There is no motor stimulation at 2 V. We then anesthetized these levels with lidocaine and Depo- Medrol. I used a total of 40 mg Depo-Medrol for both levels. I then burned 2 levels of L3-L4, L4-5 and L5-S1 on the left side for 4 minutes at 80 ?C. The same procedure was carried out on the right at the L4-5 and L5-S1 level. Patient tolerated the procedure well with no complication. Plan and Disposition:: We will follow-up with this patient in 2 weeks. We will reevaluate her symptoms at that time. Plan and Disposition:: Patient was discharged without incident.
[2023-10-02] MEDS: LIDOCAINE 1% 5ML PF VIAL 5 ML (14:57)
[2023-10-02] MEDS: methylPREDNISolone ACETATE 80MG/ML VIAL 80 MG (14:57)
[2023-10-02] MEDS: BUPIVACAINE 0.25% 10ML INJ 25 MG IJ (14:58)
== END 2023-10-02 14:26 | disposition home or self-care (01) ==
LOC: SC.PAINP 13:29
PROVIDERS: PCP Internal Medicine Adolescent Medicine; Visit Provider Nurse Anesthetist, Certified Registered
DX: M47.816 Spondylosis without myelopathy or radiculopathy, lumbar region (principal); M51.16 Intervertebral disc disorders with radiculopathy, lumbar region
CPT/HCPCS: 64635; 64636; J1010

== ENCOUNTER 2023-10-18 09:57 | Outpatient (POV) | payer MEDICARE, SELFPAY ==
[2023-10-18 10:09] VITALS: BP 138/78; PULSE 84; RESP 16; O2SAT 95; BMI 23.1
--- NOTE | 2023-10-18 10:25 | EXP.PAIN.SOA ---
[facility] Disclaimer: The information contained in this section may have been updated after the patient was seen, as this information can be updated by other users. Medical History Migraines COPD (chronic obstructive pulmonary disease) GERD (gastroesophageal reflux disease) HLD (hyperlipidemia) HTN (hypertension) Family History Other No significant family history Social History Smoking Status: Current every day smoker tobacco type: cigars alcohol intake: current substance use type: denies use current occupational status: unemployed Travel in the last 8 weeks: None caffeine: Yes PM Subjective & Objective Subjective Subjective:: Patient is a pleasant 68-year-old male who presents today for follow-up of lumbar RFA bilaterally L4-L5 and L5-S1 on 10/02/2023. Today he rates his pain a 3 out of 10. He states he has had at least 95% improvement following this procedure. He states he has been able to increase his activity with overall decreased pain and feels much more functional. His Daniel has been reviewed and is appropriate. Review of Systems: General: No recent weight changes, no fever, no sleep disturbances Respiratory: No cough, no shortness of air, no recurring pulmonary infections Cardiovascular/peripheral vascular: No chest pain, no palpitations, no edema, no shortness of breath Gastrointestinal: No new onset incontinence, normal bowel movements reported Genitourinary: No new onset incontinence Musculoskeletal: Low back pain Psychiatric: [Normal mood/affect] Neurological: [Denies weakness in extremities], [denies balance issues] Pain at rest (0-10 scale): 3 Objective Objective:: Physical Exam: General: Alert and oriented x3, no acute distress, pleasant and cooperative Lungs: Respirations even and unlabored, symmetrical chest expansion Eyes: PERRL Musculoskeletal: Flexion and extension of lumbar [spine] somewhat guarded secondary to pain, [antalgic gait noted] Neurological: Speech clear, no gross sensory deficit Has patient had previous pain injection?: Yes Percent improvement in pain since last injection: 95% Conservative treatment options previously tried: Home exercise plan Length of treatment: Longer than 6 weeks Meds Home Medications and Allergies Home Medications ?Medication ?Instructions ?Recorded ?Confirmed ?Type fluticasone furoate 100 1 inh IH DAILY Asthma 11/06/18 10/18/23 History mcg-vilanterol 25 mcg/dose inhalation powder hydrochlorothiazide 25 mg tablet 25 mg PO DAILY blood pressure 11/06/18 10/18/23 History omeprazole 40 mg capsule,delayed 40 mg PO DAILY GERD 11/06/18 10/18/23 History release ranitidine HCl 300 mg capsule 300 mg PO DAILY GERD 11/06/18 10/18/23 History rosuvastatin 10 mg tablet 10 mg PO DAILY Cholesterol 05/17/22 10/18/23 History methocarbamol 500 mg tablet 500 mg PO HS . 07/11/22 10/18/23 History New Prescriptions to Start Prescriptions: Allergies Allergy/AdvReac Type Severity Reaction Status Date / Time Penicillins Allergy Verified 10/02/23 13:44 Assessment and Plan *Assessment and plan (1) Lumbar facet arthropathy: Status: Acute Category: Medical Code(s): M47.816 - Spondylosis without myelopathy or radiculopathy, lumbar region (2) Hip pain: Status: Acute Qualifiers: Laterality: left Qualified Code(s): M25.552 - Pain in left hip Category: Medical Code(s): M25.559 - Pain in unspecified hip (3) Low back pain: Status: Acute Qualifiers: Chronicity: chronic Back pain laterality: bilateral Sciatica presence: without sciatica Qualified Code(s): M54.50 - Low back pain, unspecified; G89.29 - Other chronic pain Category: Medical Code(s): M54.50 - Low back pain, unspecified Plan Patient has had significant improvement and does not require any additional injection interventions at this time. Patient will return to clinic in 2 months for reevaluation of symptoms and plan of care. Patient has been instructed to contact the clinic with any concerns before the next appointment. Dr. Smith has reviewed this note and agrees with this plan of care. This note was dictated using voice recognition software and make contain errors or omissions. All injections are used with Lidocaine or Bupivacaine and Depo Medrol.
== END 2023-10-18 23:59 | disposition home or self-care (01) ==
LOC: SC.PAIN 09:59
PROVIDERS: PCP Internal Medicine Adolescent Medicine; Visit Provider Nurse Practitioner Family
DX: M47.816 Spondylosis without myelopathy or radiculopathy, lumbar region (principal); M25.552 Pain in left hip; M54.50 Low back pain, unspecified; G89.29 Other chronic pain; Z87.891 Personal history of nicotine dependence
CPT/HCPCS: 99212; G0463

== ENCOUNTER 2023-12-19 08:45 | Outpatient (POV) | payer MEDICARE, SELFPAY ==
--- NOTE | 2023-12-19 09:09 | A.OFFVIS_ITS ---
[facility] Disclaimer: The information contained in this section may have been updated after the patient was seen, as this information can be updated by other users. Medical History Migraines COPD (chronic obstructive pulmonary disease) GERD (gastroesophageal reflux disease) HLD (hyperlipidemia) HTN (hypertension) Family History Other No significant family history Social History Smoking Status: Current every day smoker tobacco type: cigars alcohol intake: current substance use type: denies use current occupational status: unemployed Travel in the last 8 weeks: None caffeine: Yes PM Subjective & Objective Subjective Subjective:: Patient is a pleasant 68-year-old male who presents today for follow-up. Today he rates his pain a 2 out of 10. He states overall he has been doing well following his lumbar RFA that was done back in September. He states that for the most part he has primarily good days but will occasionally have a date that the pain is much worse however it is still very manageable compared to when it started. Patient denies any other changes. His Daniel has been reviewed and is appropriate. Review of Systems: General: No recent weight changes, no fever, no sleep disturbances Respiratory: No cough, no shortness of air, no recurring pulmonary infections Cardiovascular/peripheral vascular: No chest pain, no palpitations, no edema, no shortness of breath Gastrointestinal: No new onset incontinence, normal bowel movements reported Genitourinary: No new onset incontinence Musculoskeletal: Low back pain Psychiatric: [Normal mood/affect] Neurological: [Denies weakness in extremities], [denies balance issues] Pain at rest (0-10 scale): 2 Objective Objective:: Physical Exam: General: Alert and oriented x3, no acute distress, pleasant and cooperative Lungs: Respirations even and unlabored, symmetrical chest expansion Eyes: PERRL Musculoskeletal: Flexion and extension of lumbar [spine] somewhat guarded secondary to pain, [antalgic gait noted] Neurological: Speech clear, no gross sensory deficit Has patient had previous pain injection?: No Conservative treatment options previously tried: Home exercise plan Length of treatment: Longer than 12 point Meds Home Medications and Allergies Home Medications ?Medication ?Instructions ?Recorded ?Confirmed ?Type fluticasone furoate 100 1 inh IH DAILY Asthma 11/06/18 10/18/23 History mcg-vilanterol 25 mcg/dose inhalation powder hydrochlorothiazide 25 mg tablet 25 mg PO DAILY blood pressure 11/06/18 10/18/23 History omeprazole 40 mg capsule,delayed 40 mg PO DAILY GERD 11/06/18 10/18/23 History release ranitidine HCl 300 mg capsule 300 mg PO DAILY GERD 11/06/18 10/18/23 History rosuvastatin 10 mg tablet 10 mg PO DAILY Cholesterol 05/17/22 10/18/23 History methocarbamol 500 mg tablet 500 mg PO HS . 07/11/22 10/18/23 History New Prescriptions to Start Prescriptions: Allergies Allergy/AdvReac Type Severity Reaction Status Date / Time Penicillins Allergy Verified 10/02/23 13:44 Assessment and Plan *Assessment and plan (1) Lumbar facet arthropathy: Status: Acute Category: Medical Code(s): M47.816 - Spondylosis without myelopathy or radiculopathy, lumbar region (2) Hip pain: Status: Acute Qualifiers: Laterality: left Qualified Code(s): M25.552 - Pain in left hip Category: Medical Code(s): M25.559 - Pain in unspecified hip (3) Low back pain: Status: Acute Qualifiers: Chronicity: chronic Back pain laterality: bilateral Sciatica presence: without sciatica Qualified Code(s): M54.50 - Low back pain, unspecified; G89.29 - Other chronic pain Category: Medical Code(s): M54.50 - Low back pain, unspecified Plan Patient continues to do well following his bilateral lumbar medial branch block L4-L5 and L5-S1 that was done on October 01 and does not require any additional interventions at this time. Patient will return to clinic in March for reevaluation of symptoms and plan of care. Patient has been instructed to contact the clinic with any concerns before the next appointment. Dr. Smith has reviewed this note and agrees with this plan of care. This note was dictated using voice recognition software and make contain errors or omissions. All injections are used with Lidocaine or Bupivacaine and Depo Medrol.
[2023-12-19 09:11] VITALS: BP 125/69; PULSE 81; RESP 16; O2SAT 96; BMI 22.8
== END 2023-12-19 23:59 | disposition home or self-care (01) ==
LOC: SC.PAIN 08:46
PROVIDERS: PCP Internal Medicine Adolescent Medicine; Visit Provider Nurse Practitioner Family
DX: M47.816 Spondylosis without myelopathy or radiculopathy, lumbar region (principal); M25.552 Pain in left hip; M54.50 Low back pain, unspecified; G89.29 Other chronic pain
CPT/HCPCS: 99212; G0463

== ENCOUNTER 2024-01-28 06:36 | Day surgery (SDC) | payer MEDICARE, SELFPAY ==
[2024-01-22 16:04] VITALS: BMI 23.0
[2024-01-28] MEDS: LACTATED RINGERS 1000ML 1,000 ML 25 ML IV (06:52)
[2024-01-28 06:54] VITALS: BP 137/86; PULSE 88; RESP 18; TEMP 36.2; O2SAT 98
--- NOTE | 2024-01-28 07:41 | EXP.ANES.CKL ---
[facility] Disclaimer: The information contained in this section may have been updated after the patient was seen, as this information can be updated by other users. Medical History Migraines COPD (chronic obstructive pulmonary disease) GERD (gastroesophageal reflux disease) HLD (hyperlipidemia) HTN (hypertension) Surgical History History of hernia repair History of colonoscopy Family History Other No significant family history Social History Smoking Status: Current every day smoker tobacco type: cigars alcohol intake: current substance use type: denies use current occupational status: other Travel in the last 8 weeks: None caffeine: Yes [facility] Anesthesia Checklist Patient Identification Patient Identification: Arm Band, Family and Verbal (Name & ) Structural Data Admitted From: Home Planned Operative Procedure/s: Colonoscopy Consent for Planned Operative Procedure(s) Verified: Yes NPO Status Verified Time NPO: 04:30 Additional verifications Anesthesia Reactions: No Hx Blood Transfusions: No Blood Transfusion Reaction: No Cardiovascular Assessment Heart Sounds: S1 & S2 Pulse Rhythm: Irregular Peripheral Edema: No Airway Assessment Mallampati Score:: Class II C-Spine Mobility Assessed: Yes TMJ Mobility Assessed: Yes Dentition: Dentures-good fit (Nothing loose per pt.) Neurological Assessment Level of Consciousness: Awake, Alert, Appropriate and Follows Commands Hx Seizures: No Numbness or tingling in extremities: No Anesthesia Plan Anesthesia Risk discussed: Yes Anesthesia Plan: Verified ASA Class: III Anesthesia Type: MAC
--- NOTE | 2024-01-28 07:56 | EXP.HP ---
History of Present Illness *Admission Date: 01/28/24 *Reason for visit:: Personal history of adenomatous colon polyps *History of present illness: Mr. Rosenberg is a 68-year-old gentleman who is here for surveillance colonoscopy secondary to personal history of adenomatous polyps. The examination is deemed medically necessary for surveillance colonoscopy. The patient has been seen, interviewed and examined prior to the procedure by both myself and the anesthesia provider. [facility] Disclaimer: The information contained in this section may have been updated after the patient was seen, as this information can be updated by other users. Medical History (Updated 01/28/24 @ 07:57 by Gibson Randle II, MD) Migraines COPD (chronic obstructive pulmonary disease) GERD (gastroesophageal reflux disease) HLD (hyperlipidemia) HTN (hypertension) Surgical History History of hernia repair History of colonoscopy Family History Other No significant family history Social History Smoking Status: Current every day smoker tobacco type: cigars alcohol intake: current substance use type: denies use current occupational status: other Travel in the last 8 weeks: None caffeine: Yes Other Medical History Have you received the Flu Vaccine for this season: No Have you received the Pneumonia Vaccine: No Review of Systems Review of Systems Review of systems (narrative): Negative *Cardiovascular Comments: Negative *Gastrointestinal Comments: Negative *Genitourinary Comments: Negative *Musculoskeletal Comments: Negative *Neurologic Comments: Negative Meds Home Medications and Allergies Home Medications ?Medication ?Instructions ?Recorded ?Confirmed ?Type fluticasone furoate 100 1 inh IH DAILY Asthma 11/06/18 01/22/24 History mcg-vilanterol 25 mcg/dose inhalation powder hydrochlorothiazide 25 mg tablet 25 mg PO DAILY blood pressure 11/06/18 01/22/24 History omeprazole 40 mg capsule,delayed 40 mg PO DAILY GERD 11/06/18 01/22/24 History release ranitidine HCl 300 mg capsule 300 mg PO DAILY GERD 11/06/18 01/22/24 History rosuvastatin 10 mg tablet 10 mg PO DAILY Cholesterol 05/17/22 01/22/24 History methocarbamol 500 mg tablet 500 mg PO HS . 07/11/22 01/22/24 History New Prescriptions to Start Prescriptions: Allergies Allergy/AdvReac Type Severity Reaction Status Date / Time Penicillins Allergy Rash Verified 01/28/24 06:54 Exam Data for Last 24 hours Vital signs and Labs for Last 24 Hours: Temp Pulse Resp BP Pulse Ox O2 Del Method 97.2 F L 88 18 137/86 98 Room Air 01/28/24 06:54 01/28/24 06:54 01/28/24 06:54 01/28/24 06:54 01/28/24 06:54 01/28/24 06:54 *Routine HEENT Exam Head: Present normocephalic Eye: Present EOMI and PERRL ENT: Present mucous membranes moist *Routine Neck Exam Neck: Present supple *Routine Respiratory Exam Respiratory: Present CTA bilaterally *Routine Cardiovascular Exam Cardiovascular: Present RRR *Routine Abdominal Exam Abdominal: Present soft and normoactive bowel sounds; Absent tenderness *Routine Rectal Exam Rectal:: deferred *Routine Genitalia Exam Genitalia:: deferred *Routine Extremities Exam Extremities: Absent cyanosis, clubbing or edema *Routine Skin Exam Skin: Present warm; Absent rash *Routine Neurological Exam Neurological: Present alert and oriented X3 Assessment and Plan *Assessment and plan (1) Personal history of adenomatous and serrated colon polyps: Status: Acute Category: Medical Code(s): Z86.0101 - Personal history of adenomatous and serrated colon polyps Plan A/P: 1. Personal history of adenomatous colon polyps is the preprocedural diagnosis. The patient will be anesthetized/sedated using MAC sedation. The patient has been seen and examined. Cardiac and lung assessment prior to the examination is stable. Proceed with planned surveillance colonoscopy
[2024-01-28 07:57] VITALS: O2SAT 100
--- NOTE | 2024-01-28 07:57 | P.PCN_ITS ---
[facility] Procedure Note Date: 01/28/24 Time: 08:12 Procedure Note:: Colonoscopy Procedure Report: Colonoscopy with cold snare polypectomy Endoscopist: Gibson Randle II, MD Referring physician: Yordan Garcia M.D. Date of Procedure: January 28, 2024 Equipment: Olympus 190 variable stiffness pediatric colonoscope Sedation: MAC sedation Indication: Mr. Rosenberg is a 68-year-old gentleman who is here for follow-up surveillance colonoscopy secondary to a personal history of colon polyps. The patient's last colonoscopy was October 2018 at which time a single polyp (tubular adenoma) was removed. He does state that his father had colon polyps. The patient reports no abdominal pain, weight loss, change in his bowel habits or rectal bleeding. He reports no family history of colon cancer. Procedure: Prior to the procedure, a history and physical exam was performed, and patient's medications and allergies were reviewed. The risks, benefits and alternatives of the sedation and procedure were discussed with the patient. All questions were answered and informed consent was obtained. The patient was brought to the procedure room. Patient identification and proposed procedure were verified by the physician and the nurse. The patient was placed in a left lateral decubitus position and the scope was passed under direct vision. Throughout the procedure, the patient's blood pressure, pulse, and oxygen saturations were monitored continuously. The colonoscopy was accomplished without difficulty. The patient tolerated the procedure well. Findings: On digital rectal examination there was normal rectal tone. There were no external hemorrhoids. The prostate was 2+, smooth, soft, symmetric without nodules. The colonoscope was introduced through the anal canal to the rectum and advanced to the cecum. The ileocecal valve and appendiceal orifice were identified. The scope was advanced a short distance into the ileum which appeared grossly normal. The scope was then withdrawn into the colon. There were 5 polyps (cecum x 2 (4 and 5 mm), transverse x 2 (3 and 4 mm) and descending x 1 (5 mm)). These were all removed via cold snare polypectomy. The remaining cecum, ascending and transverse colon and mucosa were grossly normal. There were scattered diverticuli throughout the descending and sigmoid colon (LEFT colon). The rectum itself was normal. Upon retroflexion within the rectum there were grade 1-2 internal hemorrhoids. The preparation was excellent through out with [place] Preparation Score of 9. The cecal time was 12 minutes. Impression: 1. Diminutive colonic polyps x 5 2. Left-sided diverticulosis 3. Grade 1-2 internal hemorrhoids Plan: I will follow-up the polyp histology and surveillance colonoscopy again in 3 to 5 years based upon the pathology. I would encourage psyllium bulking fiber supplementation on a maintenance basis.
[2024-01-28 08:15] VITALS: BP 102/56; PULSE 65; RESP 16; TEMP 36.2; O2SAT 94
[2024-01-28 08:25] VITALS: BP 102/56; PULSE 63; RESP 18; O2SAT 93
[2024-01-28 08:35] VITALS: BP 106/63; PULSE 64; RESP 18; O2SAT 94
[2024-01-28 08:45] VITALS: BP 117/75; PULSE 64; RESP 20; O2SAT 94
== END 2024-01-28 08:45 | disposition home or self-care (01) ==
PROVIDERS: PCP Internal Medicine Adolescent Medicine; Visit Provider Internal Medicine Gastroenterology
PROC: (CPT 45385; principal; 2024-01-28 08:00)
DX: K63.5 Polyp of colon (principal); K57.30 Diverticulosis of large intestine without perforation or abscess without bleeding; K64.8 Other hemorrhoids; Z86.0101 Personal history of adenomatous and serrated colon polyps
CPT/HCPCS: 45385; 88305; J7120

== ENCOUNTER 2024-03-24 08:33 | Outpatient (POV) | payer MEDICARE, SELFPAY ==
[2024-03-24 09:00] VITALS: BP 136/84; PULSE 79; RESP 18; O2SAT 97; BMI 23.0
--- NOTE | 2024-03-24 09:05 | EXP.PAIN.SOA ---
[facility] Disclaimer: The information contained in this section may have been updated after the patient was seen, as this information can be updated by other users. Medical History (Updated 01/28/24 @ 07:57 by Gibson Randle II, MD) Migraines COPD (chronic obstructive pulmonary disease) GERD (gastroesophageal reflux disease) HLD (hyperlipidemia) HTN (hypertension) Surgical History History of hernia repair History of colonoscopy Family History Other No significant family history Social History Smoking Status: Current every day smoker tobacco type: cigars alcohol intake: current substance use type: denies use current occupational status: other Travel in the last 8 weeks: None caffeine: Yes PM Subjective & Objective Subjective Subjective:: Patient is a pleasant 68-year-old male who presents today for worsening pain. He does rate his pain this morning at 3 out of 10 however states that he just has not done as much just yet. He states the pain will immediately go to a 6 or 7 out of 10 with increased activity. He does feel like his ablation has now worn off. Patient did have significant relief from this procedure back in September and would like to see about getting the procedure repeated. Patient has continued conservative treatment with no additional changes. He denies any new falls or injuries. His Daniel has been reviewed and is appropriate. Review of Systems: General: No recent weight changes, no fever, no sleep disturbances Respiratory: No cough, no shortness of air, no recurring pulmonary infections Cardiovascular/peripheral vascular: No chest pain, no palpitations, no edema, no shortness of breath Gastrointestinal: No new onset incontinence, normal bowel movements reported Genitourinary: No new onset incontinence Musculoskeletal: Low back pain Psychiatric: [Normal mood/affect] Neurological: [Denies weakness in extremities], [denies balance issues] Pain at rest (0-10 scale): 6 Objective Objective:: Physical Exam: General: Alert and oriented x3, no acute distress, pleasant and cooperative Lungs: Respirations even and unlabored, symmetrical chest expansion Eyes: PERRL Musculoskeletal: Flexion and extension of lumbar [spine] somewhat guarded secondary to pain, [antalgic gait noted] positive Kemps test Neurological: Speech clear, no gross sensory deficit Has patient had previous pain injection?: No Conservative treatment options previously tried: Home exercise plan Length of treatment: Longer than 12 weeks Meds Home Medications and Allergies Home Medications ?Medication ?Instructions ?Recorded ?Confirmed ?Type fluticasone furoate 100 1 inh IH DAILY Asthma 11/06/18 01/22/24 History mcg-vilanterol 25 mcg/dose inhalation powder hydrochlorothiazide 25 mg tablet 25 mg PO DAILY blood pressure 11/06/18 01/22/24 History omeprazole 40 mg capsule,delayed 40 mg PO DAILY GERD 11/06/18 01/22/24 History release ranitidine HCl 300 mg capsule 300 mg PO DAILY GERD 11/06/18 01/22/24 History rosuvastatin 10 mg tablet 10 mg PO DAILY Cholesterol 05/17/22 01/22/24 History methocarbamol 500 mg tablet 500 mg PO HS . 07/11/22 01/22/24 History New Prescriptions to Start Prescriptions: Allergies Allergy/AdvReac Type Severity Reaction Status Date / Time Penicillins Allergy Rash Verified 01/28/24 06:54 Assessment and Plan *Assessment and plan (1) Low back pain: Status: Acute Qualifiers: Chronicity: chronic Back pain laterality: bilateral Sciatica presence: without sciatica Qualified Code(s): M54.50 - Low back pain, unspecified; G89.29 - Other chronic pain Category: Medical Code(s): M54.50 - Low back pain, unspecified (2) Lumbar facet arthropathy: Status: Acute Category: Medical Code(s): M47.816 - Spondylosis without myelopathy or radiculopathy, lumbar region (3) Hip pain: Status: Acute Qualifiers: Laterality: left Qualified Code(s): M25.552 - Pain in left hip Category: Medical Code(s): M25.559 - Pain in unspecified hip Plan Patient is experiencing worsening pain in his low back with limited range of motion and a positive Kemps test. Patient has previously had 2 successful lumbar medial branch blocks and a successful lumbar RFA in September. That procedure did provide 95% improvements initially and has continued to can have improved function over the last several months and is only now starting to really increase in consistency to where it is interfering with his ability to perform activities of daily living such as cooking and cleaning. Patient was reviewed over the risk and benefits of repeat lumbar RFA and he would like to proceed forward with this plan of care. Patient has continued at home stretching and exercise for longer than 12 weeks that was physician guided and between injections. Patient will be scheduled for repeat lumbar RFA bilaterally L4-L5 and L5-S1 under fluoroscopy. Patient has been instructed to contact the clinic with any concerns before the next appointment. Dr. Smith has reviewed this note and agrees with this plan of care. This note was dictated using voice recognition software and make contain errors or omissions. All injections are used with Lidocaine, Bupivacaine and Depo Medrol. Occasionally urine drug screen is needed to verify patient's compliance with our office pain contract. This is ordered based off specific treatments related to chronic pain with the potential to abuse certain medications.
== END 2024-03-24 23:59 | disposition home or self-care (01) ==
LOC: SC.PAIN 08:34
PROVIDERS: PCP Internal Medicine Adolescent Medicine; Visit Provider Nurse Practitioner Family
DX: M54.50 Low back pain, unspecified (principal); G89.29 Other chronic pain; M47.816 Spondylosis without myelopathy or radiculopathy, lumbar region; M25.552 Pain in left hip; F17.290 Nicotine dependence, other tobacco product, uncomplicated; Z73.89 Other problems related to life management difficulty
CPT/HCPCS: 99212; G0463

== ENCOUNTER 2024-04-08 07:10 | Outpatient (CLI) | payer MEDICARE, SELFPAY ==
--- NOTE | 2024-04-08 07:11 | CT_ITS ---
FINAL REPORT TECHNIQUE: Axial images were obtained from the lung apex to the mid abdomen by computed tomography. This study was performed with techniques to keep radiation doses as low as reasonably achievable (ALARA). Individualized dose reduction techniques using automated exposure control or adjustment of mA and/or kV according to the patient's size were employed. CLINICAL HISTORY: SCREENING smoker, 3 cigars x 35 years FINDINGS: CHEST CT LOW DOSE CTDI vol (mGy): 2.90 DLP (mGy-cm): 105.51 There is no axillary adenopathy. There is no hilar or mediastinal adenopathy. The heart is normal in size. There is prominent coronary artery calcification. There is no pericardial or pleural effusion. There are changes of emphysema. There is a 5 mm left upper lobe nodule well-seen on series 4, image 17. Multiple 2 to 3 mm subpleural nodules in the right lower lobe are somewhat clustered, favor postinflammatory. Finding is best seen on images 55 through 62. Limited images of the upper abdomen are unremarkable. IMPRESSION: Pulmonary nodules as detailed above. Modifier S: Prominent coronary artery calcification. Lung RADS category 2S. Recommend 12 month follow-up low-dose chest CT. Reviewed, Interpreted and Dictated by Radha Bird MD Transcribed by Fabiana Gonzalez Authenticated and . [facility]
== END 2024-04-08 23:59 | disposition home or self-care (01) ==
LOC: RAD 07:10
PROVIDERS: PCP Internal Medicine Adolescent Medicine; Visit Provider Internal Medicine Adolescent Medicine
DX: Z87.891 Personal history of nicotine dependence (principal)
CPT/HCPCS: 71271

== ENCOUNTER 2024-04-21 09:15 | Outpatient (POV) | payer MEDICARE, SELFPAY ==
[2024-04-21 10:09] VITALS: BP 132/75; PULSE 70; RESP 16; O2SAT 97; BMI 23.1
--- NOTE | 2024-04-21 10:19 | A.OFFVIS_ITS ---
[facility] Disclaimer: The information contained in this section may have been updated after the patient was seen, as this information can be updated by other users. Medical History (Updated 04/21/24 @ 10:22 by Trista Ramos APRN) Migraines COPD (chronic obstructive pulmonary disease) GERD (gastroesophageal reflux disease) HLD (hyperlipidemia) HTN (hypertension) Surgical History History of hernia repair History of colonoscopy Family History Other No significant family history Social History Smoking Status: Current every day smoker tobacco type: cigars alcohol intake: current substance use type: denies use current occupational status: other Travel in the last 8 weeks: None caffeine: Yes PM Subjective & Objective Subjective Subjective:: Patient is a pleasant 69-year-old male who presents today for RFA did not help. Today he rates his pain a 6 out of 10. He denies any new trauma or injury. Patient does state from our last visit the pain has definitely increased more significantly. Patient did previously have his last lumbar RFA in September that did provide 95% improvement and continued to provide significant relief up until the last month. He does state even at our last visit that it was still helping however he had started to notice the increased pain compared to what he had the prior 5 months. Patient states that it definitely even in the last month has still not been as severe as it has been in past. He does state that now he automatically gets up with worsening pain without even having to do any more additional activity and then it progressively worsens throughout the day. Patient has tried and failed conservative therapy including at home stretching exercise for longer than 12 weeks and between injection procedures with no additional changes. His Daniel has been reviewed and is appropriate. Review of Systems: General: No recent weight changes, no fever, no sleep disturbances Respiratory: No cough, no shortness of air, no recurring pulmonary infections Cardiovascular/peripheral vascular: No chest pain, no palpitations, no edema, no shortness of breath Gastrointestinal: No new onset incontinence, normal bowel movements reported Genitourinary: No new onset incontinence Musculoskeletal: Low back pain Psychiatric: [Normal mood/affect] Neurological: [Denies weakness in extremities], [denies balance issues] Pain at rest (0-10 scale): 6 Objective Objective:: Physical Exam: General: Alert and oriented x3, no acute distress, pleasant and cooperative Lungs: Respirations even and unlabored, symmetrical chest expansion Eyes: PERRL Musculoskeletal: Flexion and extension of lumbar [spine] somewhat guarded secondary to pain, [antalgic gait noted] positive Kemps test Neurological: Speech clear, no gross sensory deficit Has patient had previous pain injection?: No Conservative treatment options previously tried: Home exercise plan Length of treatment: Longer than 12 weeks Meds Home Medications and Allergies Home Medications ?Medication ?Instructions ?Recorded ?Confirmed ?Type fluticasone furoate 100 1 inh IH DAILY Asthma 11/06/18 04/21/24 History mcg-vilanterol 25 mcg/dose inhalation powder hydrochlorothiazide 25 mg tablet 25 mg PO DAILY blood pressure 11/06/18 04/21/24 History omeprazole 40 mg capsule,delayed 40 mg PO DAILY GERD 11/06/18 04/21/24 History release ranitidine HCl 300 mg capsule 300 mg PO DAILY GERD 11/06/18 04/21/24 History rosuvastatin 10 mg tablet 10 mg PO DAILY Cholesterol 05/17/22 04/21/24 History methocarbamol 500 mg tablet 500 mg PO HS . 07/11/22 04/21/24 History New Prescriptions to Start Prescriptions: Allergies Allergy/AdvReac Type Severity Reaction Status Date / Time Penicillins Allergy Rash Verified 01/28/24 06:54 Assessment and Plan *Assessment and plan (1) Low back pain: Status: Acute Qualifiers: Chronicity: chronic Back pain laterality: bilateral Sciatica presence: without sciatica Qualified Code(s): M54.50 - Low back pain, unspecified; G89.29 - Other chronic pain Category: Medical Code(s): M54.50 - Low back pain, unspecified (2) Lumbar facet arthropathy: Status: Acute Category: Medical Code(s): M47.816 - Spondylosis without myelopathy or radiculopathy, lumbar region (3) Degenerative disc disease: Status: Acute Category: Medical Plan Patient continues to have worsening pain throughout his back that even over the last month has definitely doubled. At our last visit he was only rating his pain the morning of our appointment at 3 out of 10 however today it is jumped to a 6 out of 10 with minimal activity. Patient did have a limited range of motion of his lumbar spine and a positive Kemps test. Patient did have a successful lumbar RFA in September that provided 95% improvement and has lasted over the last 6 months. Patient did at our last appointment state he had at least 5 months however it was still helping even then and is only now getting more severe than his intensity of his low back pain. Patient denies any radiating symptoms to his legs. He has tried oral medications, heat and ice, topicals, at home stretching exercise for longer than 12 weeks with no additional changes. I did review over again the risk and benefits of the lumbar RFA and he would like to proceed forward with this plan of care. This is the only procedure that has significantly allowed for him to have improved function with overall decreased p ain. We will resubmit to insurance for the lumbar RFA bilaterally L4-L5 and L5- S1 under fluoroscopy. Patient has been instructed to contact the clinic with any concerns before the next appointment. Dr. Smith has reviewed this note and agrees with this plan of care. This note was dictated using voice recognition software and make contain errors or omissions. All injections are used with Lidocaine, Bupivacaine and Depo Medrol. Occasionally urine drug screen is needed to verify patient's compliance with our office pain contract. This is ordered based off specific treatments related to chronic pain with the potential to abuse certain medications.
== END 2024-04-21 23:59 | disposition home or self-care (01) ==
LOC: SC.PAIN 09:16
PROVIDERS: PCP Internal Medicine Adolescent Medicine; Visit Provider Nurse Practitioner Family
DX: M54.50 Low back pain, unspecified (principal); G89.29 Other chronic pain; M47.816 Spondylosis without myelopathy or radiculopathy, lumbar region; F17.290 Nicotine dependence, other tobacco product, uncomplicated
CPT/HCPCS: 99212; G0463

== ENCOUNTER 2024-08-28 09:57 | Outpatient (POV) | payer MEDICARE, SELFPAY ==
--- OUTSIDE RECORDS SUMMARY | 2024-08-28 10:02 | XMS_ITS | Data Portability ---
Author Organization [facility] Francii wiley, CKS AUDUBON CLOSED Address [address] [place] [address] Care Team Providers Care Glove Wrapper Name Role Phone URIEL AVILES Machine Joint Cutter CLARA SARAH Primary Care Provider [phone] CLARA SARAH Referring Provider EDILMA VENTURA Scheduling Manager Assessment Encounter Date Assessment Date Assessment LastModified by Organization Details LastModified Time 04/27/2022 04/27/2022 Diffuse lumbar spondylosis worst at L2-3 and L3-4. He has some foraminal and lateral recess stenosis at these levels but has no radicular leg pain.We could entertain an L2-L4 fusion but It is difficult to know if it will help with his back pain. I do not recommend rushing to surgery here. I would have him do lumbar physical therapy. We will haveDr. Smith to take a look at him. 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 His saw him. We will make a referral. I will keep his MRI scan loaded to our PACS system. I will check some flexion-extensi on x-rays to make sure that there is no occult instability. If he does have instability I would still want him to have some conservative treatment but will have the office call and schedule him follow-up. He was happy with the plan. [email or web address] Not available 04/27/2022 11:21:24 Plan of Treatment Reminders Order Date Submit Date Provider Last Modified By Organization Details Last Modified Time Details Appointments None recorded. Lab surgical pathology study 2024 025 ROSINA [facility], [facility], [place], [address], 5 11:54:12 Referral None recorded. Procedures None recorded. Surgeries None recorded. Imaging None recorded. Medication Orders Zantac 300 mg tablet 2017 018 [email or web address] [facility] [id number], [address] , [place], [address], 4 09:48:08 omeprazole 40 mg capsule,de layed release 2017 018 INTERFACE [facility] [id number], [address], [place], [address], 8 14:31:33 Patient TargetsNo targets recorded. Patient Instructions Encounter Date Encounter Id Patient Instructions Last Modified By Organization Details Last Modified Time 03/06/2017 [id number] advised to quit smoking [email or web address] Not available 03/06/2017 15:24:20 06/01/2017 [id number] cough: care instructions [email or web address] Not available 06/01/2017 14:31:10 Reason for Referral None Reported. Results Created Date Observation Date Name Description Value Unit Range Abnormal Flag Note LastModifiedBy Organization Detail LastModifiedTime 06/25/19 25 06/24/2024 SURGI KRYSTIN surgical SEE BELOW [place] topat holog y Repor t NAME: DIXON VALLELAMONT PATH: [id number] PROCE DURE DATE: 06/24 SIGNO UT DATE: 06/26 Copy to: Diagn osis: Left tempo ral scalp - SEBOR RHEIC KERAT OSIS SOURC E OF SPECI MEN: SKIN, L TEMPO RAL SCALP CLINI KRYSTIN INFOR MATIO N: R/O: SK VS MM. Gross Descr iptio n: The speci men consi sted of multi ple (x3) buckner fragm ents which measu red 39 x 9 x 2 mm in aggre gate. Seria lly secti oned (x6) the large r piece . Seria lly secti oned (x4) one piece . Trise cted the small er piece . All tissu e submi tted in three casse ttes. Micro scopi c Descr iptio n: The epide rmis is acant hotic and hyper kerat otic. SALVADOR MCKOY MD Anjelica d Out Date: 06/26 11:53 1 Not Available [facility] [address] [place] [address], [phone], 06/26/2024 11:54:11 04/28/1904/27/2022 XR, lumbo sacra l spine , 2 or 3 view, bendi ng only [facility] [address] [place] [address] Patiharris t Name: LYNN hoyt : 956 Patiharris t Orderi ng Provid er: DORIAN Mk ROSALEE EXAM DATE: 2022 EXAM: XR LUMBAR SPINE FLEX/E XT ONLY CLINIC AL INFORM ATION: Back pain. IMAGES PROVID ED: Latera l views of the lumbar spine in flexio n and extens ion. COMPAR SHANELL: None. FINDIN GS: Verteb ral body height s are normal . Multil evel disc space reduct ion is seen with anteri or and latera l osteop hytes. No abnorm ality of alignm ent is seen. No instab ility is seen on flexio n or extens ion. Degene rative change s are seen in the facet joints . No radiog raphic eviden ce of injury is noted. IMPRES SHABANA: 1. Degene rative change s of the lumbar spine. 2. No instab ility. 3. Severe athero sclero tic calcif icatio ns of the abdomi nal aorta. Interp reted By: Kvng Caraballo MD Electr onical ly Signed By: Kvng Caraballo MD on 04/28/19 1:10 PM jeni [facility] [address] [place], [address], 07/12/2023 11:18:47 04/29/19 23 04/13/2022 CT, lumba r spine , w/o contr ast No observ ation record ed. BARCODE Not Available 2022 09:35:52 05/24/1904/25/2022 MRI, lumba r spine , w/o contr ast No observ ation record ed. [facility] (Radiology) [address] [place] [address] , [place], [address], 07/18/2022 15:40:11 06/28/1904/25/2022 MRI, lumba r spine , w/o contr ast No observ ation record ed. BARCODE Not Available 2022 15:19:33 07/05/19 23 04/13/2022 bone densi ty No observ ation record ed. BARCODE Not Available 2022 09:24:30 07/05/19 23 04/25/2022 MRI, lumba r spine , w/o contr ast No observ ation record ed. BARCODE Not Available 2022 09:24:30 07/05/19 23 04/13/2022 CT, cervi krystin spine , w/o contr ast No observ ation record ed. BARCODE Not Available 2022 09:24:30 07/05/1904/06/2022 CT, lumba r spine , w/o contr ast No observ ation record ed. BARCODE Not Available 2022 09:24:30 07/05/19 23 04/06/2022 MRI, thora cic spine , w/o contr ast No observ ation record ed. BARCODE Not Available 2022 09:24:30 Result Notes Documentation Provider Name and Address Organization Details Recorded Time Xr, Lumbosacral Spine, 2 Or 3 View, Bending Only : [address] [address] Patient Name: SANTY ROSENBERG Patient : 1955 Patient Ordering Provider: DORIAN TURK EXAM DATE: 04/27/2022 EXAM: XR LUMBAR SPINE FLEX/EXT ONLY CLINICAL INFORMATION: Back pain. IMAGES PROVIDED: Lateral views of the lumbar spine in flexion and extension. COMPARISON: None. FINDINGS: Vertebral body heights are normal. Multilevel disc space reduction is seen with anterior and lateral osteophytes. No abnormality of alignment is seen. No instability is seen on flexion or extension. Degenerative changes are seen in the facet joints. No radiographic evidence of injury is noted. IMPRESSION: 1. Degenerative changes of the lumbar spine. 2. No instability. 3. Severe atherosclerotic calcifications of the abdominal aorta. Interpreted By: Chalino Caraballo MD AN TURK MD [address] [place] [address], [phone], [facility] 07/12/2023 11:18:47 Problems Name Problem SNOMED Code Status Onset Date Resolution Date Notes Provider Name and Address Organization Details Recorded Time Hypertensive disorder 62621123 Active 2016 [facility] 7 16:08:06 Gastroesophage al reflux disease without esophagitis 803108715 Active 2016 [facility] 7 16:08:19 Problem Notes Documentation Provider Name and Address Organization Details Recorded Time Ent Consult Note : [facility] [address] [facility] [address]CLSIGJMG, CLAUDIS J (id #[id number], : 1955) [address] [place] [address] Encounter Summary - Progress Note Date Printed: 03/06/2017 Documents sent via fax will include the followingmessage: This fax may contain sensitive and confidential personal health information that is being sent for the sole use of the intended recipient. Unintended recipients are directed to securely destroy any materials received. You are hereby notified that the unauthorized disclosure or other unlawful use of this fax or any personal health information is prohibited. If you received this fax in error, please visit [email or web address] to notify the sender and confirm that the information will be destroyed. If you do not have internet access, please call to notify the sender and confirm that the information will be destroyed. Thank you for your attention and cooperation. [ID:[id number]] Patient Santy Rosenberg (61yo, M) #[id number] 1955 Patient Demographics: Address [address] [place] [address] ANGELA Sommer [address] Work Phone Encounter Notes: Encounter Reason/DateNone recorded 03/06/2017 - 03:10PM - [facility] History of Present Illness Chief Complaint: Chronic Cough/ GERD Timing:About 1 year Duration:Intermittent Location: throatSeverity:Much improved Quality: Context: Modifing Factors:Prilosec 40mg and Zantac 300mg are helping Assoc Signs and Symptoms:Has a cough now due to URI, no dysphagia, hoarseness had improved until the URI, no hemoptysis, no known reflux. Review of Systems Patient reports no night sweats. He reports no chest pain. He reports normal appetite. He reports no weakness. Vitals Ht: 5 ft 9 in Wt: 202 lbs BMI: 29.8 T: 97.8 F BP: 132/82 Pulse: 79 bpm RR: 20 Results/InterpretationsNone recorded Physical ExamPatient is a 61-year-old male. Constitutional:General Appearance: healthy-appearing and well-nourished. Communication: normal voice quality. Head/Face:Inspection: atraumatic. Facial strength: normal strength. Sinuses: no tenderness. Eyes:Pupils: PERRLA and EOM intact. Ears:Right External auditory canal: normal appearance. Left External auditory canal: normal appearance. Right Tympanic membrane: landmarks clear. Left Tympanic membrane: landmarks clear. Nose:Nasal Skin: no lesions or lacerations. Nasal Dorsum: symmetric with no visible or palpable deformities. Nasal tip: normal symmetric nasal tip. Nasal Mucosa: normal. Oral Cavity/Mouth:Lips, teeth, gums: normal lips and gums. Oral Mucosa: normal. Palate: normal hard palate and soft palate. Tongue: normal tongue. Posterior pharynx: normal. Neck:Neck: symmetrical. Respiratory:Inspection/Ausc ultation: good air movement, chest expands symmetrically. Lymph Nodes:Cervical: no palpable lymph node enlargement. Neurological System:Orientation: oriented to time, place, and person. Mood and affect: normal mood and affect. Procedure DocumentationNone recorded Assessment and Plan1. Cough- likely multifactorial from GERD and lower airway disease. Has improved significantly with changing reflux management to Zantac and Prilosec. UvlbyebyA32: Cough COUGH: CARE INSTRUCTIONS 2. Chronic hoarseness- noqqxyaudB16.0: Dysphonia 3. Gastroesophageal reflux disease without hueusehxcggA97.9: Gastro-esophageal reflux disease without esophagitis Zantac 300 mg tablet -Take 1 tablet(s) at bedtime by oral route. Qty: 90 tablet(s) Refills: 1 [facility] 40 mg capsule,delayed release -take 1 capsule daily in the morning Qty: 90 capsule(s) Refills: 1 [facility]acy: [facility] Return to Office URIEL AVILES MD for RECHECK at [facility] on 05/02/2017 at 03:00 PM to see MARK GUILLEN MD for COLONOSCOPY at [facility] on or around 03/22/2019 Patient Medical History: Allergies List Reviewed Allergies NKDA Medications Reviewed Medications NameDate Source benzonatate 100 mg /13/18 filled [facility] Breo Ellipta 100 mcg-25 mcg/dose powder for roohbtffaa38/05/18 filled [facility] cefdinir 300 mg /13/18 filled [facility] lisinopril 20 mg-hydrochlorothiazide 12.5 mg cijyjv39/21/17 filled [facility] omeprazole 40 mg capsule,delayed releasetake 1 capsule daily in the edmqhva64/05/18 filled [facility] predniSONE 20 mg qvawoo99/13/18 filled [facility] ProAir HFA 90 mcg/actuation aerosol unxvmpw07/18/17 filled [facility] raNITIdine 300 mg tabletTake 1 tablet(s) at bedtime by oral route.02/21/17 filled [facility] Family HistoryReviewed Family History Father - No current problems or disability - History of polyp of colon (onset age: 55) Mother - No current problems or disability Past Medical History ArthritisY AsthmaY HypertensionY Notes ACID REFLUX; COPD WAS LATER DIADNOSED ASTHMA; HEADACHES; UNDIAGNOSED SLEEP APENA Vaccine HistoryReviewed Vaccines Vaccine Type Date Amt. Route Site Lot # Mfr. Exp. Date Date on VIS VIS [employer] Education Director Influenza influenza 11/20/15 BRAYAN Electronically Signed by: URIEL AVILES [facility]2017 16:21:01 Procedures Surgical History Date Name Laterality Status Provider Name and Address Organization Details Recorded Time 025 DAK - Destruction BN Lesions completed Tabitha Grimmwin [facility] 06/24/2024 14:33:05 025 Shave Removal completed Tabitha Irwin [facility] 06/24/2024 14:33:35 024 DAK - Cryo AK completed Marinaviolet Kirbyashli [facility] 05/30/2023 10:06:45 017 Laryngoscopy Flex completed URIEL AVILES MD [address] [place], [address] , [facility] 01/24/2017 16:20:51 017 EKG completed CHRIS ZARATE APRN [address] [place], [address] , [facility] 12/07/2016 13:23:42 017 Electroencephalogram (EEG) completed Dorian Nieves [facility] 10/25/2016 10:21:36 Hernia Repair completed Esthela Glynn [facility] 10/02/2016 13:53:56 Other completed Aidan Pittman [facility] 01/09/2017 14:49:14 Imaging Results None recorded. Procedure Notes None recorded. Medical Equipment None Reported. Allergies Allergen ID Allergen Name Allergen Category Reaction Reaction Severity Criticality Documentation Date Start Date Code Code System Note Provider Name and Address Organization Details Recorded Time 823532 Product containin g penicilli n (product) medicatio n Not available Not available Not available 05/30/2023 34480 8001 SNOMED [facility] 09:46:32 Medications Name Sig Start Date Stop Date Status Note LastModified by Organization Details LastModified Time methocarb helen 500 mg tablet 05/29 completed Not Available Not Available Not Available promethaz ine-DM 6.25 mg-15 mg/5 mL oral syrup 10/02 completed Not Available Not Available Not Available lisinopri l 20 mg-hydroc hlorothia zide 12.5 mg tablet 05/29 completed Not Available Not Available Not Available azithromy liban 250 mg tablet 01/08 completed Not Available Not Available Not Available ranitidin e 300 mg tablet TAKE ONE TABLET BY MOUTH EVERY NIGHT AT BEDTIME 05/29 completed Not Available Not Available Not Available hydrocodo ne 5 mg-acetam inophen 325 mg tablet 05/29 completed Not Available Not Available Not Available prednison e 20 mg tablet 05/29 completed Not Available Not Available Not Available clindamyc in HCl 150 mg capsule 05/29 completed Not Available Not Available Not Available promethaz ine 6.25 mg-codein e 10 mg/5 mL syrup 03/06 completed Not Available Not Available Not Available omeprazol e 40 mg capsule,d elayed release TAKE ONE CAPSULE BY MOUTH EVERY MORNING active Not Available Not Available No t Available benzonata te 100 mg capsule 05/29 completed Not Available Not Available Not Available cyanocoba jamison (vit B-12) 1,000 mcg/mL injection solution 05/29 completed Not Available Not Available Not Available lansopraz ole 30 mg capsule,d elayed release 01/24 completed Not Available Not Available Not Available hydrochlo rothiazid e 25 mg tablet active not currentl y taking 06/2024 Not Available Not Available Not Available levofloxa liban 500 mg tablet 10/02 completed Not Available Not Available Not Available brompheni ramine-ps eudoephed rine-DM 2 mg-30 mg-10 mg/5 mL oral syrup 10/02 completed Not Available Not Available Not Available cefdinir 300 mg capsule 05/29 completed Not Available Not Available Not Available rosuvasta tin 10 mg tablet 05/29 completed Not Available Not Available Not Available ProAir HFA 90 mcg/actua tion aerosol inhaler 05/29 completed Not Available Not Available Not Available Symbicort 160 mcg-4.5 mcg/actua tion HFA aerosol inhaler 05/29 completed Not Available Not Available Not Available levocetir izine 5 mg tablet 10/02 completed Not Available Not Available Not Available Breo Ellipta 100 mcg-25 mcg/dose powder for inhalatio n active Not Available Not Available Not Available Breo Ellipta 200 mcg-25 mcg/dose powder for inhalatio n active Not Available Not Available Not Available Fluzone Quad 60 mcg (15 mcg x 4)/0.5 mL IM suspensio n 10/02 completed Not Available Not Available Not Available Fluzone Quad (P F) 60 mcg(15 mcgx4)/0. 5 mL intramusc ular syringe 01/09 completed Not Available Not Available Not Available Vitals Date Recorded Body height Body mass index (BMI) Body weight Body temperature Heart rate Respiratory rate Systolic And Diastolic Provider Name and Address Organization Details Last Updated DateTime 8 175.26 cm 29.8 kg/m2 98410.6 6 g 97.8 [degF] 79 /min 20 /min 132/82 mm[Hg] [facility] 8 15:06:51 Date Recorded Body height Body mass index (BMI) Body weight Heart rate Oxygen saturation Oxygen saturation in Arterial blood by Pulse oximetry Systolic And Diastolic Provider Name and Address Organization Details Last Updated DateTime 8 175.26 cm 30 kg/m2 52072.2 5 g 76 /min 90 % 90 % 130/79 mm[Hg] Maxse Singh [facility] 8 13:09:42 Date Recorded Body height Body weight Heart rate Systolic And Diastolic Provider Name and Address Organization Details Last Updated DateTime 04/27/2022 175.26 cm 43752.56 g 79 /min 135/73 mm[Hg] Portia Murphy [facility] 04/27/2022 08:45:55 Date Recorded Body height Body mass index (BMI) Body weight Provider Name and Address Organization Details Last Updated DateTime 05/30/2023 175.26 cm 24.4 kg/m2 46660.74 g Aleyda Greer [facility] 05/30/2023 09:46:17 Date Recorded Body height Body mass index (BMI) Body weight Body temperature Heart rate Systolic And Diastolic Provider Name and Address Organization Details Last Updated DateTime 8 175.26 cm 28.8 kg/m2 12087.9 1 g 97 [degF] 80 /min 139/83 mm[Hg] Jessica Dubon [facility] 8 14:11:32 Social History Question Answer Notes LastModified by Organizat ion Details LastModified Time Tobacco Smoking Status Current Every Day Smoker Aleyda Greer [facility] 05/30/2023 09:48:47 How Much Tobacco Do You Chew? 5+/day [email or web address] Information not available 01/09/2017 Marital Status PATRICE [email or web address] Informatio n not available 10/02/2016 What Was The Date Of Your Most Recent Tobacco Screening? 05/30/2023 [email or web address] Information not available 05/30/2023 At What Age Did You Start Smoking Tobacco? 16 [email or web address] Information not available 01/09/2017 How Much Tobacco Do You Smoke? No [email or web address] Information not available 10/02/2016 Sex: Male Functional Status Question Answer Note LastModified by Organizat ion Details LastModified Time What is your level of alcohol consumption? Moderate Information not available 01/09/2017 What is your occupation? [employer] [email or web address] Information not available 10/02/2016 Mental Status None recorded. Family History Relationship Description Onset Age of this Age Resolved Age Notes LastModified by Organization Details LastModified Time Father No current problems or disability [email or web address] Not available 12/21 14:46:09 Father History of polyp of colon 55 [email or web address] Not available 01/09 14:46:09 Mother No current problems or disability Not available 12/21 14:46:09 Brother Malignant melanoma [email or web address] Not available 2023 09:50:44 Medical History Condition Response Persistent cough or throat clearing > 3 weeks Y Squamous Cell Carcinoma N Basal Cell Carcinoma N Arthritis Y Hypertension Y Asthma Y Immunizations Vaccine Type Date Status Note Provider Nam e and Address Organization Details Recorded Time influenza, unspecified formulation 11/20/2015 hang Glynn [facility] 10/02/2016 13:51:52 Past Encounters Encounter ID Performer Location Encounter Start Date Encounter Closed Date Diagnosis/Indication Diagnosis SNOMED-CT Code Diagnosis ICD10 Code Diagnosis Note [id number] ODALYS COHN MD NEUROLOGY [facility] [address] [place] [address] 10/02/2016 13:45:48 10/02/2016 15:40:35 Syncope 348421355 R55 Small vess el cerebrovascular disease 194685594 I67.9 [id number] DANYA GUNN MD NEUROLOGY [facility] [address] [place] [address] 10/25/2016 07:47:44 10/25/2016 08:50:33 Near syncope 080857798 R55 [id number] ODALYS COHN MD NEUROLOGY [facility] [address] [place] [address] 11/22/2016 08:19:25 11/22/2016 09:32:23 Syncope 613422470 R55 Former hea vy tobacco smoker 3735758189 82646 Z87.891 Small vess el cerebrovascular disease 523585954 I67.9 Ex-smoker 1744250 Z87.89 1 [id number] CHRIS ZARATE APRN CARDIOLOG Y [facility] [address] [place] [address] ,[address] [place] [address] 12/07/2016 08:34:28 12/07/2016 11:46:29 Syncope 982938072 R55 Mostly likely post-tussi ve situationa l syncope as his episodes occurred after coughing, although his Hx of LOC for 2 hours is unusual. EEG and Brain MRI normal. I recommend he undergo 21 day event monitoring for evaluation for HR/rhythm, as literature shows men are often more asymptomat ic with Afib than women. He is in agreement with plan. I also recommend Echocardio gram and Carotid Artery Duplex, he feels those may have been done at [facility]. Will obtain those records for review, if not done, will have him undergo both studies. I will see him back in 6 weeks for reevaluati on. He states he has a chronic cough. No GI workup, will refer him for workup up of possible GERD, given his chronic cough. He feels COPD/Asthm a is well controlled . Persistent cough 0313283 02 R05 GI referral as noted above. Appreciate their input. Hypertensive disorder 38 001424 I10 BP today 108/68; well controlled on current medication s. Continue current regimen. Low sodium diet advised. Tobacco user 348116623 Z 72.0 120 pk yr Hx of smoking cigarettes . Now smoking cigars. Smoking cessation advised. [id number] DORIAN LAY MD [facility] [address] [place] [address] 12/07/2016 10:07:07 12/07/2016 11:08:02 Syncope 481859553 R55 [id number] BLANQUITA MANZO MD [facility] [address] [place] [address] 01/09/2017 14:14:34 01/12/2017 07:56:21 [id number] URIEL AVILES MD [facility] [address] [place] [address] 01/24/2017 15:17:36 01/25/2017 08:15:50 Cough 54207978 R05 likely multifacto rial. Has underlying GERD and has been on lansoprazo le but his insurance will no longer cover this. I see no evidence of reflux laryngitis but I suspect that is a factor in the cough in addition to lower airway disease for which he is on Breo Chronic hoarseness 11388 70202 105 R49.0 likely secondary to chronic cough Gastroesop hageal reflux disease without esophagitis 789798796 K21.9 discontinu e lansoprazo le. Begin Zantac and Prilosec. Follow-up 6 weeks [id number] CHRIS ZARATE APRN CARDIOLOG Y [address] [place] [address] 03/06/2017 12:54:34 03/06/2017 15:20:25 Syncope 749268362 R55 Mostly likely post-tussi ve situationa l syncope as his episodes occurred after coughing, although his Hx of LOC for 2 hours is unusual. EEG and Brain MRI normal. Recent 21 day event monitor unremarkab le. Echocardio gram not attained. Will request again. He is having no concerning symptoms. No further cardiac workup recommende d at this point. Advised to return with any concerning symptoms. He is in agreement with plan. Persistent cough 8909447 02 R05 Now Dx with GERD. Improved with Zantac and prilosec. Seeing ENT this afternoon. Hypertensive disorder 38 106977 I10 BP today 130/79; well controlled on current medication s. Continue current regimen. Low sodium diet advised. Tobacco user 735470945 Z 72.0 120 pk yr Hx of smoking cigarettes . Now smoking cigars. Smoking cessation advised. [id number] URIEL AVILES MD [facility] [address] [place] [address] 03/06/2017 14:46:30 03/06/2017 15:21:59 Cough 29667466 R05 likely multifacto rial from GERD and lower airway disease. Has improved significan tly with changing reflux management to Zantac and Prilosec. Continue Chronic hoarseness 82019 63051 105 R49.0 improving Gastroesop hageal reflux disease without esophagitis [id number] K21.9 [id number] URIEL AVILES MD ENT [address] [place] [address] 06/01/2017 13:49:34 06/01/2017 15:14:29 Cough 30297594 R05 multifacto rial. GERD has improved so I think his lower airway disease and lisinopril are likely factors. Will discuss stopping lisinopril with his family doctor. Continue reflux management . Follow-up as needed Chronic hoarseness 64757 81693 105 R49.0 improving Gastroesop hageal reflux disease without esophagitis 178415882 K21.9 [id number] DORIAN TURK MD [facility] [address] [place] [address] 04/27/2022 08:32:48 04/28/2022 04:06:24 Lumbar spondylosis 339434743 M47.896 [id number] EDILMA LEE MD [place] [address] [place] [address] 05/30/2023 09:39:53 05/30/2023 13:11:49 Multiple benign melanocytic nevi 211184610 D22.5 - Benign appearing, reassuranc e- Counseled on importance of daily sun protection and self skin exams/shoaib toring for ugly duckling lesions Seborrheic keratosis 394 961880 L82.1 - Benign appearing, reassuranc e Senile angioma 2871026 I 78.1 - Benign appearing, reassuranc e Solar lentigo 90391454 L 81.4 - Benign appearing, reassuranc e- Counseled on importance of daily sun protection and self skin exams/shoaib toring for ugly duckling lesions Actinic keratosis 026275 007 L57.0 -Precancer ous nature discussed- Will TX with LN2 today (see proc note)-FUP if sites persist after [place] [id number] KARIME Tejeda, [employer]PORATE [employer] OFFICER [place] [address] [place] [address] 06/24/2024 13:26:16 06/24/2024 15:12:49 Multiple benign melanocytic nevi 811837549 D22.5 - Benign moles seen on exam today - SPF 30 or higher broad-spec trum sunscreen recommende d with re-applica tion every 2 hours - Discussed sun protection measures, including wide-brimm ed hat, sun-protec tive clothing, and avoidance of sun during peak hours of 10am-4pm - Avoid tanning beds as these can increase the chances of all 3 types of skin cancer - Instructed to monitor for changes and to call us for appointmen t with any changing or worrisome lesions Seborrheic keratosis 394 622555 L82.1 - Benign overgrowth s of skin - Hereditary Senile angioma 6806940 I 78.1 - Benign blood vessel growths - Hereditary Solar lentigo 27959496 L 81.4 - Benign brown spots - Sun-induce d Epidermoid cyst of skin 814833470 L72.0 Cysts are dilated follicles with keratinous material within. Can become inflamed if they rupture. Risks, benefits, side effects, alternativ es and options of excision were discussed with patient and the patient voiced understand ing. Rec no treatment if not bothersome . If it starts to change or become painful let us know. Family his tory of malignant melanoma 025861955 Z80.8 brother Reiterated need for annual eye exams, sun protection , regular self-exam, and skin exams for 1st degree relatives as melanoma. Can have a genetic tendency. Neoplasm o f uncertain behavior of skin 22157006 D48.5 Recommend blade biopsy. Risks, benefit, and procedure discussed with patient. Consent obtained. Discussed the biopsy only takes the top layer of the lesion for testing. This does NOT treat the skin cancer if it is one. Advised they would need to return for more treatment given the type and depth of the skin cancer when the results come in. Inflamed s eborrheic keratosis 761832790 L82.0 L53.8 Reports bothersome , requests removal Counseled on benign nature. Pt elected to treat with liquid nitrogen due to painful irritation . May recur or persist after treatment. Discolorat ion or scarring is possible. Health Concerns Section Related Observation LastModified by Organization Detai ls LastModified Time None Recorded Concern Status LastModified by Organization Details LastModified Time None Recorded Advance Directives Directive None Recorded Payers Insurance Date Sequence Insurance Name Policy Number Policy Duarte Covered Member ID Duarte Member ID Guarantor Name 04/18/2022 1 [place] [id number] Santy Collazowell [id number] Santy Olivo Shakira 06/24/2024 [employer] (MEDICARE REPLACEMENT/ ADVANTAGE - PPO) Santy Rosenberg [id number] Santy Rosenberg 06/24/2024 1 [employer] (PPO) Lamontchrista Pallavi Rosenberg [id number] Santy Olivo Shakira 07/01/2024 1 [employer] (MEDICARE REPLACEMENT/ ADVANTAGE - PPO) Santy Olivo Shakira [id number] Santy Oliov Shakira 01/14/2020 1 [place] [id number] Santy Olivo Shakira [id number] Santy Olivo Shakira Notes Date Note Type Note Provider Name and Address Organization Details Recorded Time 03/06/2017 text/html Chief Complaint: Chronic Cough/ GERD Timing:About 1 year Duration:Intermitt ent Location: throatSeverity:Muc h improved Quality: Context: Modifing Factors:Prilosec 40mg and Zantac 300mg are helping Assoc Signs and Symptoms:Has a cough now due to URI, no dysphagia, hoarseness had improved until the URI, no hemoptysis, no known reflux. URIEL AVILES MD [address] [place], [address], [facility] 03/06/2017 15:15:12 03/06/2017 text/html Mr. Rosenberg is a pleasant 61 yo male here today for follow up of syncope. He has Hx of HTN and COPD. He has 120pk year Hx of smoking cigarettes, though now he is smoking cigars. He drinks beer, aprox 12 beers per week. He has had 2 episodes of syncope, both in the setting of severe cough. The first syncopal episode occurred while on his riding lawnmower, he began coughing then passed out over the lawnmower. The second episode occurred while he was in his kitchen floor, he began to cough then awoke on the floor, he states, 2 hours later. He has had chronic cough for the past several years. He has been worked up by PCP and Neurology. He has had normal brain MRI, normal EEG study, normal EKG. He states carotid artery study was done at [facility], but unsure if Echocardiogram was done. Will obtain those records for review. He returns today for follow up. I advised 21 day event monitor at last office visit which was normal. Was seen by ENT and has been on Zantac and Prilosec at advised of Dr. Aviles, his symptoms are much improved. No further syncope. He has no complaints today. He denies chest pain, palpitations, shortness of breath, orthopnea, PND, syncope, near syncope, and edema of the lower extremities. CHRIS ZARATE, ROBERT [address] [place], [address], [facility] 03/06/2017 15:24:42 06/01/2017 text/html Chief Complaint: Cough/GERD Timing:About 1 yr Duration:still has a daily cough although reflux is not very frequent at all Location: Severity: Quality:dry cough Context: Modifing Factors:Continues Prilosec 40 and takes zantac 300 at , takes lisinopril , has had is breo changed to Symbicort for insurance reasons Assoc Signs and Symptoms:dry cough daily. No dysphagia, intermittent hoarseness, no hemoptysis, no otalgia, no known heartburn or reflux. URIEL AVILES MD [address] [place], [address], [facility] 06/01/2017 14:31:20 04/27/2022 text/html Saw Mr. Santy Rosenberg in the office. I saw his in the past. I did not recommend surgery. His son is one of the SOFTWARE DEVELOPMENT INTERN's that we work with at the hospital.He has had about 3 months of some lumbar pain. He only has lumbar pain. He does not have back pain. The lumbar pain is in the mid to lower lumbar area and radiates off to the left side of the back just below the flank. He does not have radicular leg symptoms again. He has no numbness. He has no hip pain. He has no gluteal pain. He has no weakness in the legs. Bending forward and not reaching his arms helps. He is maybe a little bit better when he lies down.He has not undergone any conservative treatment except that he has seen a chiropractor. DORIAN TURK MD [address] [place] [address], [address], [facility] 04/27/2022 11:21:55 05/30/2023 text/html Pt is here today for a waist up exam.No Hx I have spots on my head I am concerned about Pt's brother was dx with metastatic MM December 2022 (primary on the scalp) by Dr. Lee so he is concerned about spots on scalp in particular. Pt is re-establishing care, he was last seen 02/2020 (SK on L parietal scalp noted at that time).Pt is accompanied by his -- Rachel Hoguesurekha LEE MD [address] [place], [address], [facility] 05/31/2023 07:47:46 06/24/2024 text/html Patient is here for a waist up skin check Last visit: 05/2023No history NMSCConcerns: faceReports: spots have become raised KARIME DIGGS APRN [address] [place] [address], [address], [facility] 06/25/2024 10:50:07
--- OUTSIDE RECORDS SUMMARY | 2024-08-28 10:02 | XMS_ITS | Clinical Summary ---
Author Organization Healthcare Address [address] [place] [address] Care Team Providers Care Saturation Diver Name Role Phone Mila Lazo APRN Primary Care Provider [phone] Immunizations Immunization Administration Dates Next Due Influenza, seasonal, injectable 01/20/2016 Family History Medical History Relation Name Comments COPD Brother Relation Name Status Comments Brother Social History Tobacco Use Types Packs/Day Years Used Date Smoking Tobacco: Never Assessed Alcohol Use Standard Drinks/Week Comments Yes 0 (1 standard drink = 0.6 oz pur e alcohol) Sex and Gender Information Value Date Recorded Sex Assigned at Not on file Legal Sex Male 7:46 PM EDT Gender Identity Not on file Sexual Orientation Not on file Last Filed Vital Signs Vital Sign Reading Time Taken Comments Blood Pressure - - Pulse - - Temperature - - Respiratory Rate - - Oxygen Saturation - - Inhaled Oxygen Concentration - - Weight 93.4 kg (206 lb) 10/12/2016 9:52 AM EDT Height 175.3 cm (5' 9 ) 10/12/2016 9:52 AM EDT Body Mass Index 30.42 10/12/2016 9:52 AM EDT Plan of Treatment Not on file Care Teams Saturation Diver Relationship Specialty Start Date End Date Mila Lazo APRN [address] [place] [address] PCP - General 07/02/20
--- OUTSIDE RECORDS SUMMARY | 2024-08-28 10:02 | XMS_ITS | Data Portability ---
Author Organization [facility] Address [address] [place] [address] Assessment No assessment recorded. Plan of Treatment Reminders Order Date Submit Date Provider Last Modified By Organization Details Last Modified Time Details Appointments None recorded. Lab None recorded. Referral None recorded. Procedures None recorded. Surgeries None recorded. Imaging None recorded. Medication Orders mupirocin 2 % topical ointment 20[address] [facility] [id number], [address] , [place], [address], 14:26:58 minocycline 100 mg capsule 2023 [address] [facility] [id number], [address] , [place], [address], 14:27:03 Celestone Soluspan 6 mg/mL suspension for injection [address] [facility] [id number], [address] , [place], [address], 4 13:49:18 Zithromax Z-Gopi 250 [address] tablet [address] [facility] [id number], [address] , [place], [address], 4 13:49:48 promethazin e-phenyleph rine-codein e 6.25 mg-5 mg-10 mg/5 mL oral syrup 2016 [id number], [address] [place] [address] , [place], [address], 4 13:55:41 Patient TargetsNo targets recorded. Patient Instructions Encounter Date Encounter Id Patient Instructions Last Modified By Organization Details Last Modified Time 12/01/2016 [id number] elevated blood pressure: care instructions Not available 12/04/2016 09:11:43 upper respirator y infection (cold): care instructions [email or web address] Not available 12/01/2016 17:40:06 A healthy lifestyle: care instructions Not available 12/01/2016 14:34:26 pt. with uri, will rx, b/p etc. looks good, return if problems. Not available 12/03/2016 12:12:55 Reason for Referral None Reported. Problems Name Problem SNOMED Code Status Onset Date Resolution Date Notes Provider Name and Address Organization Details Recorded Time Chronic obstructive pulmonary disease 99821596 Completed 201612/01/2016 Mercedes Sigala null, [place] - [facility] 7 10:31:19 Hypertensiv e disorder 30063259 Active 2016 Mercedes Sigala null, [place] - [facility] 10:31:04 Gastroesoph ageal reflux disease 284919023 Active 2016 Mercedes Sigala null, [place] - [facility] 10:31:12 Asthma 204329973 Active 2016 Mercedes Sigala null, [place] - [facility] 7 10:31:26 Upper respiratory infection 21634503 Active 2016 Ralph Lucero MD [facility] [address] [place], [address], [place] - [facility] 7 12:11:38 Problem Notes None recorded. Procedures Surgical History Date Name Laterality Status Provider Name and Address Organization Details Recorded Time Hernia Repair completed Mercedes Sigala [place] - [facility] 12/01/2016 10:32:26 Imaging Results None recorded. Procedure Notes None recorded. Medical Equipment None Reported. Allergies Allergen ID Allergen Name Allergen Category Reaction Reaction Severity Criticality Documentation Date Start Date Code Code System Note Provider Name and Address Organization Details Recorded Time 76496 Product containin g penicilli n (product) medicatio n Not available Not available Not available 11/26/20152007 41696 8001 SNOMED Not Available [facility] 08:48:59 Medications Name Sig Start Date Stop Date Status Note LastModified by Organization Details LastModified Time promethazi ne-DM 6.25 mg-15 mg/5 mL oral syrup 12/01 completed Not Available Not Available Not Available lisinopril 20 mg-hydroch lorothiazi de 12.5 mg tablet take 1 tablet by oral route once daily for 30 days active Not Available Not Available No t Available Celestone Soluspan 6 mg/mL suspension for injection Take 9 mg by injectio n route. 12/12 completed Not Available Not Available Not Available minocyclin e 100 mg capsule Take 1 capsule every 12 hours by oral route for 10 days. active Not Available Not Available No t Available Zithromax Z-Gopi 250 mg tablet TAKE 2 TABLETS (500 MG) BY ORAL ROUTE ONCE DAILY FOR 1 DAY THEN 1 TABLET (250 MG) BY ORAL ROUTE ONCE DAILY FOR 4 DAYS 12/12 completed Not Available Not Available Not Available omeprazole 40 mg capsule,de layed release 12/12 completed Not Available Not Available Not Available promethazi ne-phenyle phrine-cod eine 6.25 mg-5 mg-10 mg/5 mL oral syrup Take 5 mL every 4 hours by oral route. 12/12 completed called in 4oz 1 tsp qid prin for cough Not Available Not Available Not Available lansoprazo le 30 mg capsule,de layed release 12/12 completed Not Available Not Available Not Available omeprazole 20 mg capsule,de layed release active Not Available Not Available Not Available hydrochlor othiazide 25 mg tablet active Not Available Not Available Not Available mupirocin 2 % topical ointment APPLY A SMALL AMOUNT TO THE AFFECTED AREA BY TOPICAL ROUTE 3 TIMES PER DAY active Not Available Not Available No t Available levofloxac in 500 mg tablet 12/01 completed Not Available Not Available Not Available bromphenir amine-pseu doephedrin e-DM 2 mg-30 mg-10 mg/5 mL oral syrup 12/01 completed Not Available Not Available Not Available cefdinir 300 mg capsule 12/12 completed Not Available Not Available Not Available rosuvastat in 10 mg tablet 12/12 completed Not Available Not Available Not Available ProAir HFA 90 mcg/actuat ion aerosol inhaler 12/01 completed Not Available Not Available Not Available levocetiri zine 5 mg tablet 12/01 completed Not Available Not Available Not Available Breo Ellipta 100 mcg-25 mcg/dose powder for inhalation 12/12 completed Not Available Not Available Not Available Breo Ellipta 200 mcg-25 mcg/dose powder for inhalation Inhale 1 inhalati on every day by inhalati on route for 30 days. active Not Available Not Available No t Available Fluzone Quad 4070-7497 60 mcg (15 mcg x 4)/0.5 mL IM suspension 12/01 completed Not Available Not Available Not Available Vitals Date Recorded Body weight Body mass index (BMI) Body height Body temperature Respiratory rate Systolic And Diastolic Provider Name and Address Organization Details Last Updated DateTime 7 01946.3 7 g 27 kg/m2 177.8 cm 98.1 [degF] 18 /min 112/66 mm[Hg] Mercedes Sigala [place] - [facility] 10:28:40 Date Recorded Body weight Body temperature Heart rate Oxygen saturation Oxygen saturation in Arterial blood by Pulse oximetry Respiratory rate Systolic And Diastolic Provider Name and Address Organization Details Last Updated DateTime 4 37034.9 2 g 97.2 [degF] 115 /min 98 % 98 % 18 /min 110/60 mm[Hg] Florence Scott [place] - [facility] 4 13:54:36 Social History Question Answer Notes LastModified by Organizat ion Details LastModified Time Tobacco Smoking Status Current Some Day Smoker Mercedes cardenas [place] - [facility] 12/01/2016 10:32:04 What Was The Date Of Your Most Recent Tobacco Screening? 12/13/2023 Information not available 12/13/2023 How Much Tobacco Do You Smoke? 0.25 PPD Smokes 4-5 Cigars Daily Information not available 12/13/2023 Has Tobacco Cessation Counseling Been Provided? Yes Information not available 12/13/2023 On What Date Was Tobacco Cessation Counseling Provided? 12/13/2023 [email or web address] Information not available 12/13/2023 Sex: Male Functional Status None recorded. Mental Status None recorded. Family History Relationship Description Onset Age of this Age Resolved Age Notes LastModified by Organization Details LastModified Time Father Arthritis [email or web address] Not availa ble 12/01/2016 10:31:51 Medical History Condition Response Hypertension Y Immunizations Vaccine Type Date Status Note Provider Nam e and Address Organization Details Recorded Time zoster recombinant 8 completed Florence Scott null, [place] - [facility] 12/13/2023 13:48:51 COVID-19 vaccine, vector-nr, rS-Ad26, PF, 0.5 mL 1 completed Florence Scott null, [place] - [facility] 12/13/2023 13:48:51 COVID-19, mRNA, LNP-S, bivalent, PF, 50 mcg/0.5 mL or 25mcg/0.25 mL dose 2 completed Florence Scott null, [facility] 12/13/2023 13:48:51 Influenza, high-dose, trivalent, PF 2 completed Florence cardenas, [facility] 12/13/2023 13:48:51 Past Encounters Encounter ID Performer Location Encounter Start Date Encounter Closed Date Diagnosis/Indication Diagnosis SNOMED-CT Code Diagnosis ICD10 Code Diagnosis Note [id number] [facility] [address] [place] [address] 01/14/2008 00:00:00 [id number] Ralph Lucero MD [facility] [address] [place] [address] 12/01/2016 09:49:56 12/01/2016 11:21:59 Body mass index 20-24 - normal 221334137 Z68.21 Upper resp iratory infection 05061832 J06.9 Hypertensive disorder 38 428341 I10 [id number] Lindsey Becerra APRN [facility] [address] [place] [address] 12/13/2023 13:37:39 12/13/2023 14:23:45 Abscess of skin and/or subcutaneous tissue 64451247 L02.91 if area worsens or no improvemen t returnclea n with soap and water apply creamantib iotics as ordered Health Concerns Section Related Observation LastModified by Organization Detai ls LastModified Time None Recorded Concern Status LastModified by Organization Details LastModified Time None Recorded Advance Directives Directive None Recorded Payers Insurance Date Sequence Insurance Name Policy Number Policy Duarte Covered Member ID Duarte Member ID Guarantor Name 12/19/2023 1 [employer] (MEDICARE REPLACEMENT/ ADVANTAGE - PPO) Jaden Rosenberg [id number] Jaden Rosenberg 12/13/2023 1 [place] [id number] Jaden Rosenberg [id number] Jaden Rosenberg Notes Date Note Type Note Provider Name and Address Organization Details Recorded Time 12/01/2016 text/html Upper Respirator y SymptomsReported bypatient.Location:[facility] Quality:congested;hack ing cough;dry cough Severity:mild Duration:symptoms lasting over 2 weeks Onset/Timing:gradual Context:no sick contacts;smoker;asthma Modifying Factors:OTC medication Associated Symptoms:no sputum production; pt states he feels run down Ralph Lucero MD [address], [place], [address], [facility] 12/03/2016 12:13:57 12/13/2023 text/html 68 yr old male presents for a boil to his right belt line x 3 weeks. pt states he gets infected hairs and thinks that is what this is. Lindsey Becerra APRN [address], [place], [address], [place] 12/13/2023 14:28:00
--- NOTE | 2024-08-28 10:17 | EXP.PAIN.SOA ---
[facility] Disclaimer: The information contained in this section may have been updated after the patient was seen, as this information can be updated by other users. Medical History (Updated 04/21/24 @ 10:22 by Trista Ramos APRN) Migraines COPD (chronic obstructive pulmonary disease) GERD (gastroesophageal reflux disease) HLD (hyperlipidemia) HTN (hypertension) Surgical History History of hernia repair History of colonoscopy Family History Other No significant family history Social History Smoking Status: Current every day smoker tobacco type: cigars alcohol intake: current substance use type: denies use current occupational status: other Travel in the last 8 weeks?: None caffeine: Yes PM Subjective & Objective Subjective Subjective:: Patient presents today for worsening low back pain. He rates it a 10 out of 10. At our last visit we were resubmitting for the lumbar RFA however our office had not heard any updated details. Patient and spouse do state today that they did get a copy of the insurance approval mailed to them and the date on it is good of until next Sunday and wanted to make sure that we did have a copy of this and that we could proceed forward. Patient states it is still that same back pain that is bothering him that is worse with bending, twisting or lifting. He states it has been much worse the last 2 weeks for what ever reason. Patient has gotten significant improvement with the prior RFA in the past with his last one providing 95% improvement in over 6 months relief. His Daniel has been reviewed and is appropriate. Review of Systems: General: No recent weight changes, no fever, no sleep disturbances Respiratory: No cough, no shortness of air, no recurring pulmonary infections Cardiovascular/peripheral vascular: No chest pain, no palpitations, no edema, no shortness of breath Gastrointestinal: No new onset incontinence, normal bowel movements reported Genitourinary: No new onset incontinence Musculoskeletal: Low back pain Psychiatric: [Normal mood/affect] Neurological: [Denies weakness in extremities], [denies balance issues] Pain at rest (0-10 scale): 10 Objective Objective:: Physical Exam: General: Alert and oriented x3, no acute distress, pleasant and cooperative Lungs: Respirations even and unlabored, symmetrical chest expansion Eyes: PERRL Musculoskeletal: Flexion and extension of lumbar [spine] somewhat guarded secondary to pain, [antalgic gait noted] positive Kemps test Neurological: Speech clear, no gross sensory deficit Has patient had previous pain injection?: No Conservative treatment options previously tried: Home exercise plan Length of treatment: Longer than 12 weeks Meds Home Medications and Allergies Home Medications ?Medication ?Instructions ?Recorded ?Confirmed ?Type fluticasone furoate 100 1 inh IH DAILY Asthma 11/06/18 04/21/24 History mcg-vilanterol 25 mcg/dose inhalation powder hydrochlorothiazide 25 mg tablet 25 mg PO DAILY blood pressure 11/06/18 04/21/24 History omeprazole 40 mg capsule,delayed 40 mg PO DAILY GERD 11/06/18 04/21/24 History release ranitidine HCl 300 mg capsule 300 mg PO DAILY GERD 11/06/18 04/21/24 History rosuvastatin 10 mg tablet 10 mg PO DAILY Cholesterol 05/17/22 04/21/24 History methocarbamol 500 mg tablet 500 mg PO TID . #42 tabs 05/07/24 Rx New Prescriptions to Start Prescriptions: Allergies Allergy/AdvReac Type Severity Reaction Status Date / Time Penicillins Allergy Rash Verified 01/28/24 06:54 Assessment and Plan *Assessment and plan (1) Low back pain: Status: Acute Qualifiers: Chronicity: chronic Back pain laterality: bilateral Sciatica presence: without sciatica Qualified Code(s): M54.50 - Low back pain, unspecified; G89.29 - Other chronic pain Category: Medical Code(s): M54.50 - Low back pain, unspecified (2) Lumbar facet arthropathy: Status: Acute Category: Medical Code(s): M47.816 - Spondylosis without myelopathy or radiculopathy, lumbar region (3) Degenerative disc disease: Status: Acute Category: Medical Plan Patient's symptoms are still consistent with the lumbar facets arthropathy and a good candidate for the lumbar RFA. I did discuss with the patient that we do go back through our system and we will go ahead and make sure that he is on for Sunday for the repeat lumbar RFA. We did go over risk and benefits. Patient agrees with this plan of care. Patient will follow-up after this injection with our office 2 weeks later. Patient has been instructed to contact the clinic with any concerns before the next appointment. Dr. Smith has reviewed this note and agrees with this plan of care. This note was dictated using voice recognition software and make contain errors or omissions. All injections are used with Lidocaine, Bupivacaine and dexamethasone. Occasionally urine drug screen is needed to verify patient's compliance with our office pain contract. This is ordered based off specific treatments related to chronic pain with the potential to abuse certain medications.
[2024-08-28 10:47] VITALS: BP 141/71; PULSE 78; RESP 18; O2SAT 97; BMI 23.6
== END 2024-08-28 23:59 | disposition home or self-care (01) ==
LOC: SC.PAIN 09:59
PROVIDERS: PCP Internal Medicine Adolescent Medicine; Visit Provider Nurse Practitioner Family
DX: M47.816 Spondylosis without myelopathy or radiculopathy, lumbar region (principal); M51.360 Other intervertebral disc degeneration, lumbar region with discogenic back pain only; G89.29 Other chronic pain
CPT/HCPCS: 99212; G0463

== ENCOUNTER 2024-09-02 14:26 | Day surgery (SDC) | payer MEDICARE, SELFPAY ==
[2024-09-02 14:40] VITALS: BP 145/79; PULSE 78; RESP 18; O2SAT 97; BMI 23.6
[2024-09-02 14:50] VITALS: BP 139/73; PULSE 73; RESP 18; O2SAT 97
[2024-09-02] MEDS: DEXAMETHASONE 10MG/ML 1ML VIAL 10 MG (14:50)
[2024-09-02] MEDS: LIDOCAINE 1% 5ML PF VIAL 5 ML (14:50)
[2024-09-02] MEDS: BUPIVACAINE 0.25% 10ML INJ 25 MG IJ (14:50)
--- NOTE | 2024-09-02 14:57 | P.PCN_ITS ---
Procedure Date: 09/02/24 Time: 14:45 Anesthesiologist:: William Mcduffie CRNA Complications:: None Pre-procedure Diagnosis:: Degenerative disc lumbar spine multilevels. Lumbar radiculopathy. Lumbar spondylosis. Multilevel lumbar facet arthropathy. Post-procedure Diagnosis:: Same. Indications for Procedure:: Patient is a very pleasant 69-year-old male who comes our clinic today for lumbar radiofrequency ablation L4-5, L5-S1 bilateral levels. Patient describes low lumbar back pain as constant, dull, aching. Patient also reports difficulty with lumbar flexion, extension, left and right rotation. He rates his pain 7/10. Procedure Details:: Procedure Details: Lumbar RFA Informed consent was obtained and the risk and benefits of the procedure was explained to the patient. Patient was placed prone on the procedure table. The patient was prepped and draped in sterile fashion. C-arm fluoroscopy was used to view the lumbar spine. The skin and subcutaneous tissues were anesthetized using lidocaine. I placed 20-gauge RF needles into the facet joints of L3-L4, L4-L5 and L5-S1 bilaterally. We underwent sensory stimulation. There is good sensory stimulation at 0.8 V. We underwent motor stimulation. There is no motor stimulation at 2 V. We then anesthetized these levels with lidocaine and Depo- Medrol. I used a total of 10 mg of dexamethasone for all 3 levels. I then burned all 3 levels of L3-L4, L4-5 and L5-S1 bilaterally for 4 minutes at 80 ?C. Patient tolerated the procedure well with no complication. Plan and Disposition:: We will follow-up with this patient in 2 weeks. We will reevaluate her symptoms at that time. Plan and Disposition:: Patient was discharged without incident.
[2024-09-02 14:59] VITALS: BP 139/73; PULSE 73; RESP 18; O2SAT 97
[2024-09-02 15:01] VITALS: BP 145/77; PULSE 81; RESP 18; O2SAT 97
== END 2024-09-02 15:01 | disposition home or self-care (01) ==
PROVIDERS: PCP Internal Medicine Adolescent Medicine; Visit Provider Nurse Anesthetist, Certified Registered
DX: M51.16 Intervertebral disc disorders with radiculopathy, lumbar region (principal); M47.26 Other spondylosis with radiculopathy, lumbar region; J44.9 Chronic obstructive pulmonary disease, unspecified; K21.9 Gastro-esophageal reflux disease without esophagitis; E78.5 Hyperlipidemia, unspecified; I10 Essential (primary) hypertension; F17.290 Nicotine dependence, other tobacco product, uncomplicated; Z88.0 Allergy status to penicillin; Z79.899 Other long term (current) drug therapy
CPT/HCPCS: 64635; 64636 ×4; J0665; J1100; J2003

== ENCOUNTER 2024-09-18 14:18 | Outpatient (POV) | payer MEDICARE, SELFPAY ==
--- OUTSIDE RECORDS SUMMARY | 2024-09-18 14:26 | XMS_ITS | Clinical Summary ---
Author Organization Healthcare Address [address] [place] [address] Care Team Providers Care Lump Inspector Name Role Phone Mila Lazo APRN Primary Care Provider [phone] Immunizations Immunization Administration Dates Next Due Influenza, [...] of Treatment Not on file Care Teams Lump Inspector Relationship Specialty Start Date End Date Mila Lazo APRN [address] [place] [address] PCP - General 07/02/20
[2024-09-18 14:32] VITALS: BP 114/70; PULSE 90; RESP 18; O2SAT 95; BMI 23.6
--- NOTE | 2024-09-18 14:54 | EXP.PAIN.SOA ---
[facility] Disclaimer: The information contained in this section may have been updated after the patient was seen, as this information can be updated by other users. Medical History Migraines COPD (chronic obstructive pulmonary disease) GERD (gastroesophageal reflux disease) HLD (hyperlipidemia) HTN (hypertension) Surgical History History of hernia repair History of colonoscopy Family History Other No significant family history Social History Smoking Status: Current every day smoker tobacco type: cigars alcohol intake: current substance use type: denies use current occupational status: other Travel in the last 8 weeks?: None caffeine: Yes PM Subjective & Objective Subjective Subjective:: Patient is a pleasant 69-year-old male who presents today for follow-up of his repeat lumbar RFA L3-L4 L4-L5 and L5-S1 on 09/02/2024. Patient denies any new injuries or falls. He does state that it did seem to be a little bit delayed for this to kick in. He states that he has started to notice more improvement over the last couple of days rating at least 50% relief. Patient does feel like it is not as severe and not as constant. His Daniel has been reviewed and is appropriate. Review of Systems: General: No recent weight changes, no fever, no sleep disturbances Respiratory: No cough, no shortness of air, no recurring pulmonary infections Cardiovascular/peripheral vascular: No chest pain, no palpitations, no edema, no shortness of breath Gastrointestinal: No new onset incontinence, normal bowel movements reported Genitourinary: No new onset incontinence Musculoskeletal: Low back pain Psychiatric: [Normal mood/affect] Neurological: [Denies weakness in extremities], [denies balance issues] Pain at rest (0-10 scale): 5 Objective Objective:: Physical Exam: General: Alert and oriented x3, no acute distress, pleasant and cooperative Lungs: Respirations even and unlabored, symmetrical chest expansion Eyes: PERRL Musculoskeletal: Flexion and extension of lumbar [spine] somewhat guarded secondary to pain, [antalgic gait noted] Neurological: Speech clear, no gross sensory deficit Has patient had previous pain injection?: Yes Percent improvement in pain since last injection: 50% Conservative treatment options previously tried: Home exercise plan Length of treatment: Longer than 12 weeks Meds Home Medications and Allergies Home Medications ?Medication ?Instructions ?Recorded ?Confirmed ?Type fluticasone furoate 100 1 inh IH DAILY Asthma 11/06/18 09/18/24 History mcg-vilanterol 25 mcg/dose inhalation powder hydrochlorothiazide 25 mg tablet 25 mg PO DAILY blood pressure 11/06/18 09/18/24 History omeprazole 40 mg capsule,delayed 40 mg PO DAILY GERD 11/06/18 09/18/24 History release ranitidine HCl 300 mg capsule 300 mg PO DAILY GERD 11/06/18 09/18/24 History rosuvastatin 10 mg tablet 10 mg PO DAILY Cholesterol 05/17/22 09/18/24 History methocarbamol 500 mg tablet 500 mg PO TID . #42 tabs 05/07/24 09/18/24 Rx New Prescriptions to Start Prescriptions: Allergies Allergy/AdvReac Type Severity Reaction Status Date / Time Penicillins Allergy Rash Verified 01/28/24 06:54 Assessment and Plan *Assessment and plan (1) Low back pain: Status: Acute Qualifiers: Chronicity: chronic Back pain laterality: bilateral Sciatica presence: without sciatica Qualified Code(s): M54.50 - Low back pain, unspecified; G89.29 - Other chronic pain Category: Medical Code(s): M54.50 - Low back pain, unspecified (2) Degenerative disc disease: Status: Acute Category: Medical (3) Lumbar facet arthropathy: Status: Acute Category: Medical Code(s): M47.816 - Spondylosis without myelopathy or radiculopathy, lumbar region Plan Patient has had significant improvement and does not require any additional injection therapy at this time. Patient will return to clinic in 6 weeks for reevaluation of symptoms and plan of care. Patient has been instructed to contact the clinic with any concerns before the next appointment. Dr. Smith has reviewed this note and agrees with this plan of care. This note was dictated using voice recognition software and make contain errors or omissions. All injections are used with Lidocaine, Bupivacaine and dexamethasone. Occasionally urine drug screen is needed to verify patient's compliance with our office pain contract. This is ordered based off specific treatments related to chronic pain with the potential to abuse certain medications.
== END 2024-09-18 23:59 | disposition home or self-care (01) ==
LOC: SC.PAIN 14:19
PROVIDERS: PCP Internal Medicine Adolescent Medicine; Visit Provider Nurse Practitioner Family
DX: M51.360 Other intervertebral disc degeneration, lumbar region with discogenic back pain only (principal); G89.29 Other chronic pain; M47.816 Spondylosis without myelopathy or radiculopathy, lumbar region
CPT/HCPCS: 99212; G0463